=== PATIENT | male | born 1935 | race Caucasian/White ===

== ENCOUNTER 2016-05-03 02:22 | Observation (INO) | payer MEDICARE ==
[2016-05-03] VITALS (11 sets, daily range): BP systolic 95–158; BP diastolic 64–94; PULSE 65–99; RESP 14–18; O2SAT 96–100
[~2016-05-03] VITALS: Ht 167.6 cm; Wt 58.6 kg
[~2016-05-03 02:22] MED LIST: METO25TA6 PO; OMEP20TA86 PO; PHEN30CA PO; PHN100C PO
[2016-05-03] MEDS ORDERED: 0.9% Sodium Chloride 1,000 ML IV ONE (03:00)
[2016-05-03] MEDS ORDERED: Ondansetron 2 mg/mL 2 mL Inj IVPUSH ONE (03:00)
[2016-05-03 03:07] LABS: BASOPHILS % (AUTO) 0.1 % (0-3); EOSINOPHILS % (AUTO) 0.4 % (0-5); MONOCYTES % (AUTO) 8.1 % (4-12); Mean Corpuscular Hemoglobin 27.8 pg (27.0-35.0); Mean Corpuscular Volume 86.9 fL (81-100); NEUTROPHILS % (AUTO) 77.4 % (40-74); Platelet Count 199 bil/L (150-400)
[2016-05-03 03:33] LABS: TROPONIN T 0.01 ug/L (0.0-0.011)
[2016-05-03] MEDS: fentaNYL-PF 50 mCg/mL 2 mL Inj IVPUSH PRN ×3 (03:57→05:01)
--- NOTE | 2016-05-03 04:14 | ED.REPORT ---
HPI-General Illness Date of Service May 03, 2016 ED Provider: Donavan Mac MD Mr. Lukas Del Castillo is an 80-year-old pleasant gentleman with a past medical history significant for seizures, TIA, esophageal cancer with 5 years cancer free who presents himself by way of car to [facility] emergency Department for pain on the right side of his neck since 11:30 PM the night before. Reports the pain is very severe and is worse with movement. He took 500 mg Tylenol and claims it was not helpful. Only other symptom is nausea which began on when he entered the room. He denies all other symptoms such as head pain, dizziness, chest pain, shortness of breath, fever, chills, falls, syncope , abdominal pain, constipation, diarrhea. During his interview he fell asleep multiple times and appeared quite pale, diaphoretic and difficult to arouse. Nursing Notes Stated Complaint: NECK PAIN Chief Complaint: General Complaint Nursing Notes Reviewed: Yes Allergies: Coded Allergies: Procaine HCl (Verified Allergy, Intermediate, racing heart, 05/03/16) acyclovir (Verified Allergy, Unknown, 05/03/16) aspirin (Verified Allergy, Unknown, 05/03/16) valacyclovir (Verified Allergy, Unknown, 05/03/16) Uncoded Allergies: ADKINS PEPPERS (Allergy, Unknown, 09/05/14) Scheduled Metoprolol Tartrate (Metoprolol Tartrate) 25 Mg Tablet 12.5 MG PO BID Omeprazole (Omeprazole) 20 Mg Tablet.dr 20 MG PO DAILY Phenytoin Sodium ER (Dilantin) 100 Mg Capsule 100 MG PO BID Phenytoin Sodium ER (Dilantin) 30 Mg Capsule 60 MG PO BID General Time Seen by MD: 02:28 Chief Complaint Other (neck pain) Hx Obtained From: Patient Sudden in Onset?: Yes Location: : Neck Quality: Painful Radiation: : Does not radiate Severity: Current: Moderate Severity: Maximum: Moderate Associated with: Reports: Nausea Additional Notes: Neck Pain Pertinent Negative: Pt denies other symptoms Recent Healthcare: No recent hospitalization, Recent doctor visit Past Medical History Past Medical History Notes: Oncologist Dr. Ferrell Esophageal FB - removed endoscopy 05/21 Esophageal FB - passed w/glucagon and coke 09/2014 Past Medical History T3 N1 distal esophageal adenocarcinoma Hypertension Atrial fibrillation CVA Diverticulitis GERD Reports: Cancer, Stroke Past Surgical History Endoscopy Cholecystectomy Port surgeries Knee surgeries Esophageal surgery - partial esophagectomy in 2011 and Luc[facility] Bartholomew Family History Noncontributory Smoking History Never Smoker Social History Alcohol Use: Denies alcohol use Drug Use: Denies drug use Other Social History: , Local resident Ambulatory Status Independent Review of Systems A comprehensive review of systems was conducted with the patient and found to be negative except as above in the History of Present Illness. Complete sys rev & neg: except as marked. Physical Exam General: Elderly individual appearing frail, pale with waxing and waning lethargy and malaise, appropriately interactive when awake HEENT: Normocephalic, atraumatic. External ears without defect. Pupils equal, round, and reactive to light and accommodation. Anicteric sclerae, moist conjunctivae, and no lid lag. Oropharynx free of erythema and cobble stoning with moist mucosa. Neck: Range of motion severely restricted due to muscular pain on the right side of patient's neck. No jugular venous distension. No bruits. No lymphadenopathy or thyromegaly. Carotid pulses faint Cardiovascular: Regular rate and rhythm with no murmurs, rubs, or gallops appreciated Pulmonary: Clear to auscultation bilaterally with no crackles, wheezes, or rhonchi. Normal respiratory effort with no use of accessory muscles. Abdomen: Bowel tones present. Soft, nontender, nondistended. No hepatosplenomegaly or masses appreciated. Extremities: No clubbing, cyanosis, edema, or lymphadenopathy appreciated, pulses very faint distally. Skin: Pale and diaphoretic, turgor, and texture; no rash, ulcers, or subcutaneous nodules appreciated. Neurological: Cranial nerves grossly intact. Normal muscle strength, tone, and bulk. Reflexes, coordination, and sensory function within normal limits. No known gait impairment. Psychiatric: Normal mood and affect. Waxes and wanes for alertness, oriented to person, place, and time when awake. Vital Signs Vital Signs Date Time Temp Pulse Resp B/P Pulse Ox O2 Delivery O2 Flow Rate FiO2 05/03/16 03:56 71 16 123/77 100 Room Air 05/03/16 03:13 70 14 95/66 100 Room Air 05/03/16 02:28 37.1 77 16 150/94 98 Room Air Initial VS: Reviewed Interpretation & Diagnostics ANGIOGRAPHY CT (NECK) Read by [facility] IMPRESSION: No carotid or vertebral artery dissection or occlusion within the neck 50% focal stenosis of the proximal right internal carotid artery with normal caliber distally Degenerative changes of the spine Status post gastric pullup surgery Lab Results Interpretation Result Diagram: 05/03/16 0250 05/03/16 0250 Test 05/03/16 02:50 White Blood Count 13.5th/mm3 (3.8-10.1) Red Blood Count 4.21mil/mm3 (4.40-5.80) Hemoglobin 11.7g/dL (13.8-17.2) Hematocrit 36.6% (41.0-50.0) Mean Corpuscular Volume 86.9fL (81-100) Mean Corpuscular Hemoglobin 27.8pg (27.0-35.0) Mean Corpuscular Hemoglobin Concent 32.0% (32.0-37.0) Red Cell Distribution Width 14.4% (12.3-15.4) Platelet Count 199bil/L (150-400) Neutrophils (%) (Auto) 77.4% (40-74) Lymphocytes (%) (Auto) 13.7% (14-46) Monocytes (%) (Auto) 8.1% (4-12) Eosinophils (%) (Auto) 0.4% (0-5) Basophils (%) (Auto) 0.1% (0-3) Prothrombin Time 10.2sec (8.1-12.5) Prothromb Time International Ratio 0.95ratio Activated Partial Thromboplast Time 23.5sec (22.8-33.0) D-Dimer 1.7mg/L (<0.50) Sodium Level 136mEq/L (134-144) Potassium Level 3.8mEq/L (3.5-5.2) Chloride Level 101mEq/L (97-108) Carbon Dioxide Level 23mmol/L (18-29) Blood Urea Nitrogen 15mg/dL (8-27) Creatinine 1.20mg/dL (0.76-1.27) Estimat Glomerular Filtration Rate 62mL/min (>59) Glucose Level 177mg/dL (60-99) Lactic Acid Level 1.8mmol/L (0.4-2.0) Calcium Level 8.6mg/dL (8.5-10.1) Magnesium Level 2.0mg/dL (1.6-2.6) Total Bilirubin 0.3mg/dL (0.0-1.2) Aspartate Amino Transf (AST/SGOT) 18U/L (0-50) Alanine Aminotransferase (ALT/SGPT) 17U/L (0-44) Alkaline Phosphatase 142U/L (25-160) Troponin T 0.010ug/L (0.0-0.011) Total Protein 7.0g/dL (6.4-8.4) Albumin 3.8g/dL (3.4-5.0) ECG Interpretation ECG Interpretation: Sinus Rhythm Rate 71 Low voltage, extremity leads Time: 02:55 Interpreted by: ED physician Normal ECG Interpretation: No change from prior ECGs (05/15/14) X-Ray Chest Interpretation Chest Xray Interpretation: IMPRESSION: No acute abnormalities Interpretation / Wet Read by: Wet read ED physician CT Chest Interpretation IMPRESSION: no evidence of aortic aneurysm or dissection no evidence of pulmonary embolus S/p esophagectomy and gastric pullup surgery minimal dependent area of atelectasis No acute intra-abdominal abnormality Study type: CT pulm angiogram Interpretation / Wet Read by: Wet read ED physician Re-Eval/Medical Decision Med Decision/Clinical Course Mr. Lukas Del Castillo is a 80-year-old male with past medical history significant for seizures, TIA, esophageal cancer now 5 years cancer free who drove himself to the emergency department for neck pain and difficulty sleeping and with complaints that he felt like he was going to pass out. In the emergency department he felt quite tired and upon examination appeared pale, diaphoretic and wax and wane between alertness and lethargy. His blood pressure here in the ED was initially high at 150/94 when lying down was 95/66. He received 1 L normal saline and blood work, CBC, CMP, d-dimer, troponins. His EKG and chest x-ray were normal. Differential diagnosis includes torticollis, vasovagal, age-related lethargy, dehydration, aortic dissection, PE, carotid dissection. Troponins are negative, CMP noncontributory, white count elevated at 13.5 with a slight left shift, which is up from 15 days prior to 6.8 and patient tends to run between 3 and 8, hemoglobin and hematocrit slightly anemic with hemoglobin 11.7, d-dimer elevated at 1.7, CT angiogram Neck chest abdomen was only positive for 50% occlusion of the right carotid node dissection no pulmonary embolism. Urine dip and culture pending. In the ED the patient received Sublimaze, Versed for neck pain and muscle spasms as well as Zofran and 1 L NS. Patient was hypotensive, diaphoretic and very drowsy it would be prudent to observe patient today with remote telemetry. 80-year-old with a remote history of esophageal cancer, now reckoned to be disease free five years post resection, presents with a spasmodic right-sided posterior neck pain. There was no trauma or other inciting event. While being interviewed initially, he became quite pale and diaphoretic, with stated severe pain and nausea. Blood pressure was marginal but responded immediately to supine posture and some fluid. He became more responsive with supine posture and has improved back to baseline normotensive status. His pain has been controlled with very small doses of fentanyl and a dose of Versed. He is admitted now to the medicine service observation status after a syncopal episode. Cardiogram is nonacute. Troponin is negative. No other indication of significant pathology. Concern with his neck pain for dissection prompted a d-dimer, which was elevated. A scan of his neck chest and abdomen looking for aneurysm pulmonary embolus or dissection of the cervical vessels is negative. He is admitted now to the medicine service and transported in stable condition. Time of Eval: 02:45 Re-Evaluation/Progress Note: Patient is rechecked. He is unresponsive for a short period. Patient is arousable but weak. Minimal radial and carotid pulses. EKG is obtained. Time of Eval: 02:49 Re-Evaluation/Progress Note: Patient is rechecked. He is currently complaining of neck pain and nausea. Time of Eval: 02:57 Re-Evaluation/Progress Note: Patient is rechecked. BP is 92/50. Time of Eval: 03:13 Patient Status: Condition improved Re-Evaluation/Progress Note: Patient is rechecked. He is sleeping comfortably. Time of Eval: 05:55 Patient Status: Condition improved Re-Evaluation/Progress Note: Patient is rechecked. He is informed of his lab results, X-ray results, CT results and diagnosis. All of the patient's questions are addressed. He understands and agrees with the plan to admit. Consultation : Referral / Consult Name: Jennifer Archer DO Consulted With: Hospitalist Call Returned at: 06:00 Nub Card Tender: Will see patient, Agrees with eval, Agrees with plan, Accepts admit Counseled Regarding: Diagnosis, Lab results, Need for admission Discharge & Departure Primary Impression: Vasovagal syncope Additional Impressions: History of esophageal cancer Spasmodic torticollis Disposition: ADMITTED TO HOSPITAL Discharge Condition All VS Reviewed: Yes Referrals: Denton Dorado MD (PCP) Crit Care Except Billable Proc Time Spent: 30-74 minutes (30 minutes ) Services Performed: Patient management by me, Time spent at bedside, Reviewing test results, Reviewing imaging, Discussing patient care, Documentation in record Scribe Attestation Portions of this note were transcribed by Favian Stack. I, Dr. Mac personally performed the history, physical exam and medical decision-making; I reviewed and confirmed the accuracy of the information in the transcribed note. Signed by: Amena Puckett, 05/03/16 0600. Attending Statement As attending of record for this patient, I conducted an independent history and physical examination, and concur with the resident documentation as detailed above, and as amended. copies to: Denton Dorado MD, COREY P DO May 03, 2016 04:14 FAVIAN STACK May 03, 2016 04:22 Donavan Mac MD May 03, 2016 06:49
[2016-05-03 04:35] LABS: INR 0.95 ratio
[2016-05-03] MEDS ORDERED: Ondansetron 2 mg/mL 2 mL Inj IVPUSH PRN ×2 (06:45→10:20)
[2016-05-03] MEDS ORDERED: Alum-Mag Hydrox-Simeth 30 mL Suspension PO PRN ×2 (06:45→10:20)
[2016-05-03] MEDS: Lactated Ringer's 1,000 ML IV SCH ×2 (07:52→18:35)
--- NOTE | 2016-05-03 07:59 | DRSVH ---
PROCEDURE: X-RAY CHEST ONE VIEW, PORTABLE ([id number]) INDICATIONS: NECK / CHEST PAIN TECHNIQUE: One view of the chest was acquired. COMPARISON: [facility], CR, CHEST 2VW, 08/25/2012, 17:19. [facility], CT, CH EST/ABD/PELVIS W/CON (PNL), 04/18/2014, 10:19. [facility], CT, CT ANGIO CHEST ABD, 017, 4:54. [facility], CR, CHEST 1VW (PORTABLE), 10/04/2011, 9:16. FINDINGS: Surgical changes and devices: Surgical clips in mediastinum. Lungs and pleura: No pleural effusions or pneumothorax. Lungs are clear. Mediastinum: Mediastinal contours appear normal. Heart size is normal. Intrathoracic stomach consi stent with gastric pull-through. Bones and chest wall: No suspicious bony lesions. Overlying soft tissues appear unremarkable. [place] re degenerative joint disease noted in right shoulder. IMPRESSION: No acute cardiopulmonary disease. Dictated by: Enzo Thompson M.D. on 05/03/2016 at 7:56 Approved by: Enzo Thompson M.D. on 05/03/2016 at 7:59
--- NOTE | 2016-05-03 10:06 | NUR ---
Admit Per NOC RN report, pt arrived to unit at ~0620; pt tucked into bed and oriented to room by LADLE OPERATOR but no assessment documentation completed prior to shift change. Pt A&Ox3, ARCE, VSS, C/o neck pain - pt offered PO Tylenol and pt accepting, IV SL to Right AC - patent and IV infusing, Tele placed - SR per chief telephone operator documentation. Admission assessment and documentation completed and pt comfortable at this time. Care continues.
[2016-05-03] MEDS ORDERED: Polyethylene Glycol (PEG) 17 Gm Powder PO PRN (10:20)
--- NOTE | 2016-05-03 11:46 | DRSVH ---
PROCEDURE: CT ANGIOGRAPHY OF THE NECK WITH AND WITHOUT CONTRAST ([id number]) INDICATIONS: syncope, neck pain TECHNIQUE: After the administration of intravenous contrast, 1.5 mm axial sections acquired from the aortic arch to the [place] of [place]. Coronal 3-D maximum intensity projection (MIP) and/or volume rendering ref ormats were then performed. For radiation dose reduction, the following was used: automated exposur e control. COMPARISON: [facility], MR, STROKE PROTOCOL ([facility]), 03/23/2011, 10:26. [facility] pital, CT, CHEST/ABD/PELVIS W/CON ([facility]), 04/18/2014, 10:19. [facility], CT, CT ANGIO CHES T ABD, 05/03/2016, 4:54. FINDINGS: Image quality: Excellent. Carotid system: The great vessels demonstrate a conventional anatomy as they arise from the aortic a rch. The origins of the common carotid arteries appear patent. The common carotid arteries demonstr ate normal calibers and courses. The bifurcation regions appear normal bilaterally. There is ~50% f ocal stenosis in the proximal right internal carotid artery. The left internal carotid artery demonst rates normal caliber and course. Posterior circulation: The origins of the vertebral arteries appear patent. The more superior porti ons of the vertebral arteries demonstrate normal course and caliber. They join to form a normal appe aring basilar artery. Soft tissues: Visualized neck soft tissues demonstrate no suspicious abnormalities. Thyroid gland i s normal. There are postsurgical changes with a esophagectomy and gastric pull-through. Bones: Moderate to severe degenerative disc disease in cervical spine. No suspicious bony lesions. Visualized cervical spine appears normally aligned. IMPRESSION: 1. Patent carotid arteries and vertebral arteries bilaterally. No evidence for arterial dissections. 2. ~50% focal stenosis in the proximal right internal carotid artery. 3. No stenosis in posterior circulations. 4. Absence of contrast enhancement of the left jugular vein, suspicious for occlusion. Enlargement of the contralateral right jugular vein and collateral veins in the left neck suggest that the process may be chronic. Recommend venous Doppler ultrasound for further evaluation. 5. Esophagectomy and gastric pull-through. 6. Severe degenerative disc disease in cervical spine. Please note Impression #4 was not mentioned in the preliminary report. The result was discussed with Dr. Coffman on 05/04/2015 at 1042 hours. The estimate of stenosis included in the report of the imaging study was calculated using the NASCET method Dictated by: Enzo Thompson M.D. on 05/03/2016 at 11:41 Transcribed by: ALYCIA on 05/03/2016 at 11:46 Approved by: Enzo Thompson M.D. on 05/04/2016 at 10:42
--- NOTE | 2016-05-03 12:03 | DRSVH ---
PROCEDURE: CT ANG CHEST/ABD W/WO CONTRAST ([id number]) INDICATIONS: syncope, neck pain TECHNIQUE: Precontrast 5 mm thick sections acquired from the lung apices to the iliac crests. After the adminis tration of intravenous contrast, 3 mm thick sections again acquired from the lung apices to the iliac crests. 3-dimensional maximum intensity projection (MIP) oblique sagittal and coronal reformats wer e then acquired, and/or 3-dimensional volume rendering reformats. For radiation dose reduction, the following was used: automated exposure control. COMPARISON: [facility], CT, CHEST/ABD/PELVIS W/CON (PNL), 04/18/2014, 10:19. FINDINGS: Image quality: Excellent. AORTA: The aorta is patent with normal enhancement. The aortic root measures 3.5 x 4.2 cm. The ascen ding aorta measures 3.3 cm in diameter. The aortic arch measures 3.0 cm. The descending solid aorta m easures 3 cm in maximum diameter. Mild atherosclerosis is present. No aneurysms or dissection. The gr eat vessels are of dimensional configuration. The abdominal aorta measures up to 2.2 cm in diameter. The celiac trunk, superior mesenteric artery and inferior mesenteric artery are patent. There is a si ngle right renal artery and 2 left renal arteries. Renal arteries are patent. Bifurcations are normal . Common iliac arteries are normal in caliber. CHEST: Lungs and pleura: No acute airspace opacities. No pleural effusions or pneumothorax. Central and p eripheral airways are patent and normal in caliber. Mediastinum: Heart size is normal. No pericardial effusion. No mediastinal or hilar adenopathy by size criteria. Central pulmonary arteries are normal in size. There is esophagectomy and gastric pul l-through There is absence of contrast enhancement of the left jugular vein suspicious for occlusion . Bones and chest wall: No axillary adenopathy by size criteria. Thyroid gland normal. No suspicious bony lesions. No vertebral body compression fractures. ABDOMEN: Solid organs: Liver and spleen are normal in size. Gallbladder is surgically absent. Biliary syste m is non dilated. Pancreas enhances normally. No adrenal nodules. Both kidneys are normal in size and enhancement, without hydronephrosis. Small nonoperative renal calculi are noted bilaterally. Peritoneum and bowel: No free fluid or air. Bowel loops are normal in caliber and wall thickness. Nodes and vessels: No retroperitoneal or mesenteric adenopathy by size criteria. Inferior vena cava is normal in morphology. Bones: No suspicious bony lesions. No vertebral body compression fractures. Miscellaneous: No ventral hernias. A cystic structure is partially visualized at midline and lower abdomen, presumably the distended urinary bladder. IMPRESSION: 1. No aortic aneurysm or dissection. The descending thoracic aorta is slightly ectatic measuring up t o 3 cm. Follow up ultrasound is suggest in 3 years. 2. Esophagectomy and gastric pull-through. 3. Suspect Occlusion of the left internal jugular vein. Please see neck CT angiogram report for detai l. 4. Bilateral nonaggressive renal calculi. No significant discrepancy with the senior civil engineer radiology preliminary report. Dictated by: Enzo Thompson M.D. on 05/03/2016 at 11:47 Transcribed by: ALYCIA on 05/03/2016 at 12:03 Approved by: Enzo Thompson M.D. on 05/04/2016 at 10:05
--- NOTE | 2016-05-03 13:03 | NUR ---
Evaluation completed. Please go to "Notes" then click on "Assessments and Notes" (bottom left corner of screen). Then select appropriate discipline tab on top of screen.
--- NOTE | 2016-05-03 13:17 | NUR ---
Social Work: Initial Assessment Data & Assessment: EMR Reviewed. See Initial Assessment. SW met with patient at bedside to complete initial assessment, discuss discharge planning, and SW role explained. Patient alert and oriented x 3. Patient YVETTE is his daughter Joellen Gracia [phone]. Patient reports that his is his DPOA, but she has dementia. Patient states that his daughter Joellen [phone] is the first alternate on his DPOA. SW requested a copy. Patient confirmed that his PCP is Dr Denton Dorado. Patient's insurance is [employer] Medicare. Patient does not have LTC or VA benefits. Patient lives home alone in a single level home with one step to enter. Patient does not have any DME, SNF history or HH history. Patient's lives in a Dementia facility. SW spoke with patient daughter, Joellen [phone], and she confirmed what the patient reported. Patient daughter stated that the patient drove his self to the hospital, but someone will pick him up when discharged. SW will continue to follow. Plan: It is like that the patient will discharge home with no needs from SW. Patient will transport home via POV. SW will continue to follow. Karlene Butt LMSW, [place] Addendum: 05/03/16 at 1327 by KARLENE BUTT Amended: Links added.
--- NOTE | 2016-05-03 14:46 | DRSVH ---
PROCEDURE: US BILATERAL DUPLEX DOPPLER IMAGING OF THE CAROTIDS ([id number]) INDICATIONS: Syncope TECHNIQUE: Color and pulse Doppler interrogation was performed of both carotid systems, with image documentation and velocity measurements. COMPARISON: [facility], US, CAROTID DUPLEX DOPPLER BILAT, 03/22/2011, 19:20. FINDINGS: All stenosis calculations are based on NASCET criteria. Right side: Brachial blood pressure: 150/98 mm Hg. Common Carotid Artery(Distal) PSV: 78.70 cm/s Internal Carotid Artery PSV- Proximal: 56.90 cm/s Mid-lon.60 cm/s Distal: 74.50 cm/s EDV - Proximal: 17.50 cm/s Mid-lon.20 cm/s Distal: 25.70 cm/s External Carotid Artery(Proximal) PSV: 92 cm/s ICA/CCA PSV ratio: 0.95 Winter scale imaging description: Mild plaquing Percent internal carotid artery stenosis: Less than 50% and improved. Vertebral artery: Flow direction is antegrade. Left side: Brachial blood pressure: 158/82 mm Hg. Common Carotid Artery(Distal) PSV: 97.20 cm/s, 87.40 cm/s Internal Carotid Artery PSV - Proximal: 50.30 cm/s Mid-lon.10 cm/s Distal: 68.90 cm/s EDV - Proximal: 16.70 cm/s Mid-lon.50 cm/s Distal: 21.50 cm/s External Carotid Artery(Proximal) PSV: 151.80 cm/s ICA/CCA PSV ratio: 0.71 Winter scale imaging description: Mild plaquing Percent internal carotid artery stenosis: This is and unchanged. Vertebral artery: Flow direction is antegrade. IMPRESSION: 1. Less than 50% internal carotid stenosis bilaterally. 2. Antegrade flow in vertebral arteries bilaterally. Dictated by: Enzo Thompson M.D. on 05/03/2016 at 14:42 Approved by: Enzo Thompson M.D. on 05/03/2016 at 14:45
[2016-05-03 16:48] LABS: APPEARANCE,URINE CLEAR (CLEAR,HAZY); COLOR,URINE YELLOW (YELLOW); OCCULT BLOOD,URINE NEGATIVE (NEGATIVE); UROBILINOGEN,URINE NORMAL (NORMAL)
[2016-05-03] MEDS ORDERED: Ketorolac 15 mg/mL Inj IVPUSH PRN (18:10)
[2016-05-03] MEDS ORDERED: PHENYTOIN 30 MG PO SCH ×2 (20:30)
[2016-05-03] MEDS ORDERED: Phenytoin 100 mg ER Capsule PO SCH (20:30)
[2016-05-03] MEDS: Phenytoin 100 mg ER Capsule PO SCH ×2 (21:00→21:15)
--- NOTE | 2016-05-03 21:42 | PCM.HPMED ---
Subjective Date of Service May 03, 2016 Primary Provider: Admitting Physician: Jennifer Archer DO Primary Care Physician: Denton Dorado MD Attending Physician: Jennifer Archer DO Admit Status: From the Emergency Department, Admit to Red Team Chief Complaint: Excruciating neck pain History of Present Illness: The patient is a very pleasant 80-year-old white male with a past medical history for seizures, TIA, and esophageal cancer who was treated with esophagectomy in 2010 at [facility]. Patient began having excruciating neck pain at 11:30 PM last evening and reported that the pain became worse with movement. Patient took 500 mg of Tylenol prior to coming to the hospital and this was not helpful. He arrived by private vehicle to [facility] emergency room. After arrival to the emergency room he developed nausea which began when he entered the emergency room. He denied all other symptoms at that time such as headache, dizziness, chest pain, shortness breath , fever, chills, falls, syncope, abdominal pain, constipation, diarrhea. However, during his interview with the emergency room doctor(Dr. Justin Abarca) the patient felt like he was going to pass out. The patient appeared pale, diaphoretic and would wax and wane between alertness and lethargy. The patient had troponins drawn which were negative a CMP which was noncontributory and a white blood cell count was found to be elevated at 13.5 with a slight left shift. Which was up from 6.8 15 days prior. EKG was performed which showed sinus rhythm with a rate of 71 low voltage in the extremity leads and no change from prior EKGs. Chest x-ray showed no acute abnormalities. And due to an elevated d-dimer a CT scan of the chest was performed which showed no evidence of aortic aneurysm or dissection, no evidence of pulmonary embolus, status post esophagectomy and gastric pull up surgery, minimal dependent areas of atelectasis and no acute intra-abdominal abnormality patient was rechecked at 2: 45 AM and he was found be unresponsive for a short period he was arousable but weak. Minimal radial and carotid pulses patient was rechecked at 02 57 and blood pressure was only 92/50 due to the above findings have concern for a syncopal episode or at least presyncopal episode with severe neck pain and leukocytosis patient was brought in under observation to the hospital service.. Review of Systems: General: Patient is in no apparent distress at present time. He has no fever no chills no sweats. There is no cough. HEENT: Patient has no headache, patient has no diplopia, patient has no changes in vision. He does however wear glasses. Patient has no problems with his ears nose or throat. Patient has known dental problems. Patient has no pharyngitis or history of thrush. Neck: Patient has no previous history of stiffness in the neck, or arthritis of the neck. However, today he had extreme pain in his neck. His neck pain is relieved by pressing on the area of the inion, or the external occipital protuberance. Patient has no lymphadenopathy. Pulmonary: Patient has no shortness of breath, no cough, no expectoration of sputum. He has no pleurisy. Patient has no chest pain. Patient has no history of asthma or COPD. Cardiovascular: Patient has no chest pain. Patient has no history of heart murmur. Patient has no palpitations. Patient has no history of myocardial infarction. Patient has no history of coronary artery disease. He states that his heart is "a strong as a horse" Gastrointestinal: Patient has no history of hepatitis A, B, or C. Patient has no history of peptic ulcer disease. Patient has no history of gastroesophageal reflux disease. Patient has no history of nausea, vomiting, or diarrhea. Patient has no history of hematemesis, hematochezia, or melena. Patient has no history of colitis. Renal: Patient has no history of kidney disease. No history of kidney stones. Genitourinary: Patient has no history of dysuria, frequency, or incontinence. Patient has no previous history of genitourinary problems. 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 Neurologic: Patient has no history of stroke, no history of seizure, no history of TIA. Psychiatric: Patient has no history of psychiatric problems. The remainder of the complete review of systems was reviewed with patient and is as mentioned above otherwise negative. Allergies Coded Allergies: Procaine HCl (Verified Allergy, Intermediate, racing heart, 05/03/16) acyclovir (Verified Allergy, Unknown, 05/03/16) aspirin (Verified Allergy, Unknown, 05/03/16) valacyclovir (Verified Allergy, Unknown, 05/03/16) Uncoded Allergies: ADKINS PEPPERS (Allergy, Unknown, 09/05/14) Home Medications Scheduled medications: Metoprolol Tartrate (Metoprolol Tartrate) 25 Mg Tablet 12.5 MG PO BID Omeprazole (Omeprazole) 20 Mg Tablet. 20 MG PO DAILY Phenytoin Sodium ER (Dilantin) 160 MG PO every morning Phenytoin Sodium ER (Dilantin) 200 MG PO BID PMH T3 N1 distal esophageal adenocarcinoma status post esophago-objective me with gastric pull-through in 2010 at [facility] by Dr. 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 Diverticulitis GERD Seizure history starting at the age of 7. Surgical History Tonsillectomy anion age Wrist and tooth removal 4 Endoscopy Cholecystectomy Port surgeries Bilateral Knee surgeries to remove torn cartilage Esophageal surgery - partial esophagectomy with gastric pull through surgery in 2010 at [facility] by Dr. Peoples. Family History Patient's father in his 60s of a leg aneurysm Patient's mother of an overdose of aspirin at the age of 82 Patient has 1 sister who smokes 4 packs a day and is 82 Patient had one brother who at the age of 14 from influenza. Social History Hx Alcohol Use: Yes (Patient quit drinking in 1960. Prior to that he "drank like a fish".) Hx Substance Use: No Hx Tobacco Use: No Smoking Status: Never Smoker Living Arrangement: Alone Exam Vital Signs Vital Sign - Last Date Time Temp Pulse Resp B/P Pulse Ox O2 Delivery O2 Flow Rate FiO2 05/03/16 14:50 36.6 83 18 118/65 99 Room Air Intake and Output 05/02/16 05/02/16 05/03/16 Cumulative From/Thru 15:00 23:00 07:00 05/03/16 02:28 - 05/03/16 03:12 Intake Total 1000 ml 1000 ml Balance 1000 ml 1000 ml IV Total 1000 ml 1000 ml Exam General: The patient is in no apparent distress sitting at the side of his bed. However he is reluctant to turn his head. HEENT: Head is atraumatic normocephalic. Eyes: Pupils are equally round and reactive to light and accommodation. Extraocular muscles are intact. Sclera are white anicteric. Subconjunctival mucosa is pink. Ears and nose are unremarkable. Oropharynx: There is no mucosal lesions, there is no thrush, there is no pharyngitis. Neck: Is supple, there are no nodes, or masses, or tenderness. Chest: Is clear to auscultation and percussion. There are no rales, rhonchi, wheezes or rubs. Heart: Rate is controlled, rhythm is irregular. There is no murmur, rub or gallop. Abdomen: Good bowel sounds are present. Abdomen is soft, nontender, no organomegaly or masses were appreciated. Extremities: Are symmetrical and well perfused. There is no edema, there is no cellulitis, no rash. Neurologic: There are no focal neurological deficits. Cranial nerves II through XII are intact. There are no sensory or motor deficits. Psychiatric: Patients mood is calm and shows no sign of agitation. Genital: Deferred Rectal: Deferred Lab and Diagnostics Result Diagram: 05/03/1624905/03/16249 X-Rays, CTs and MRIs PROCEDURE: US BILATERAL DUPLEX DOPPLER IMAGING OF THE CAROTIDS ([id number]) INDICATIONS: Syncope TECHNIQUE: Color and pulse Doppler interrogation was performed of both carotid systems, with image documentation and velocity measurements. COMPARISON: [facility], , CAROTID DUPLEX DOPPLER BILAT, 2010, 19:20. FINDINGS: All stenosis calculations are based on NASCET criteria. Right side: Brachial blood pressure: 150/98 mm Hg. Common Carotid Artery(Distal) PSV: 78.70 cm/s Internal Carotid Artery PSV- Proximal: 56.90 cm/s Mid-lon.60 cm/s Distal: 74.50 cm/s EDV - Proximal: 17.50 cm/s Mid-lon.20 cm/s Distal: 25.70 cm/s External Carotid Artery(Proximal) PSV: 92 cm/s ICA/CCA PSV ratio: 0.95 Winter scale imaging description: Mild plaquing Percent internal carotid artery stenosis: Less than 50% and improved. Vertebral artery: Flow direction is antegrade. Left side: Brachial blood pressure: 158/82 mm Hg. Common Carotid Artery(Distal) PSV: 97.20 cm/s, 87.40 cm/s Internal Carotid Artery PSV - Proximal: 50.30 cm/s Mid-lon.10 cm/s Distal: 68.90 cm/s EDV - Proximal: 16.70 cm/s Mid-lon.50 cm/s Distal: 21.50 cm/s External Carotid Artery(Proximal) PSV: 151.80 cm/s ICA/CCA PSV ratio: 0.71 Winter scale imaging description: Mild plaquing Percent internal carotid artery stenosis: This is and unchanged. Vertebral artery: Flow direction is antegrade. IMPRESSION: 1. Less than 50% internal carotid stenosis bilaterally. 2. Antegrade flow in vertebral arteries bilaterally. Dictated by: Enzo Thompson M.D. on 05/03/2016 at 14:42 PROCEDURE: CT ANGIOGRAPHY OF THE NECK WITH AND WITHOUT CONTRAST ([id number]) INDICATIONS: syncope, neck pain TECHNIQUE: After the administration of intravenous contrast, 1.5 mm axial sections acquired from the aortic arch to the [place]. Coronal 3-D maximum intensity projection (MIP) and/or volume rendering reformats were then performed. For radiation dose reduction, the following was used: automated exposure control. COMPARISON: None. FINDINGS: Image quality: Excellent. Carotid system: The great vessels demonstrate a conventional anatomy as they arise from the aortic arch. The origins of the common carotid arteries appear patent. The common carotid arteries demonstrate normal calibers and courses. The bifurcation regions appear normal bilaterally. The internal carotid arteries demonstrate normal caliber and course. Posterior circulation: The origins of the vertebral arteries appear patent. The more superior portions of the vertebral arteries demonstrate normal course and caliber. They join to form a normal appearing basilar artery. Soft tissues: Visualized neck soft tissues demonstrate no suspicious abnormalities. Thyroid gland is normal. There are postsurgical changes with a esophagectomy and gastric pull-through. Bones: Moderate to severe degenerative disc disease in cervical spine. No suspicious bony lesions. Visualized cervical spine appears normally aligned. IMPRESSION: 1. Patent carotid arteries and vertebral arteries bilaterally. No evidence for a tear dissection. 2. No high-grade stenosis in anterior or posterior circulations. 3. Esophagectomy and gastric pull-through. 4. Severe degenerative disc disease in cervical spine. The estimate of stenosis included in the report of the imaging study was calculated using the NASCET method PROCEDURE: X-RAY CHEST ONE VIEW, PORTABLE ([id number]) INDICATIONS: NECK / CHEST PAIN TECHNIQUE: One view of the chest was acquired. COMPARISON: [facility], CR, CHEST 2VW, 08/25/2012, 17:19. [facility], CT, CHEST/ABD/PELVIS W/CON (PNL), 04/18/2014, 10:19. [facility], CT, CT ANGIO CHEST ABD, 05/03/2016, 4:54. [facility], CR, CHEST 1VW (PORTABLE), 10/04/2011, 9:16. FINDINGS: Surgical changes and devices: Surgical clips in mediastinum. Lungs and pleura: No pleural effusions or pneumothorax. Lungs are clear. Mediastinum: Mediastinal contours appear normal. Heart size is normal. Intrathoracic stomach consistent with gastric pull-through. Bones and chest wall: No suspicious bony lesions. Overlying soft tissues appear unremarkable. Severe degenerative joint disease noted in right shoulder. IMPRESSION: No acute cardiopulmonary disease. Dictated by: Enzo Thompson M.D. on 05/03/2016 at 7:56 Approved by: Enzo Thompson M.D. on 05/03/2016 at 7:59 Assessment & Plan The patient is a very pleasant 80-year-old white male with a past medical history for seizures, TIA, and esophageal cancer who was treated with esophagectomy in 2010 at [facility]. Patient began having excruciating neck pain at 11:30 PM last evening and reported that the pain became worse with movement. Patient took 500 mg of Tylenol prior to coming to the hospital and this was not helpful. He arrived by private vehicle to [facility] emergency room. After arrival to the emergency room he developed nausea which began when he entered the emergency room. He denied all other symptoms at that time such as headache, dizziness, chest pain, shortness breath , fever, chills, falls, syncope, abdominal pain, constipation, diarrhea. However, during his interview with the emergency room doctor(Dr. Justin Abarca) the patient felt like he was going to pass out. The patient appeared pale, diaphoretic and would wax and wane between alertness and lethargy. The patient had troponins drawn which were negative a CMP which was noncontributory and a white blood cell count was found to be elevated at 13.5 with a slight left shift. Which was up from 6.8 15 days prior. EKG was performed which showed sinus rhythm with a rate of 71 low voltage in the extremity leads and no change from prior EKGs. Chest x-ray showed no acute abnormalities. And due to an elevated d-dimer a CT scan of the chest was performed which showed no evidence of aortic aneurysm or dissection, no evidence of pulmonary embolus, status post esophagectomy and gastric pull up surgery, minimal dependent areas of atelectasis and no acute intra-abdominal abnormality patient was rechecked at 2: 45 AM and he was found be unresponsive for a short period he was arousable but weak. Minimal radial and carotid pulses patient was rechecked at 02 57 and blood pressure was only 92/50 due to the above findings have concern for a syncopal episode or at least presyncopal episode with severe neck pain and leukocytosis patient was brought in under observation to the hospital service.. Severe neck pain or torticollis -Appears to be due to degenerative disc disease and/or osteoarthritis of the cervical spine. -We will prescribe Toradol 15 mg IV every 6 hours when necessary Syncopal-like episode -Possible vasovagal near syncope or syncope. Could be related to above -Possible exhaustion from lack of sleep due to the excruciating neck pain -Start gentle IV hydration Leukocytosis with left shift -Possible occult infection yet be discovered. -Possible secondary to dehydration and current situation. -Repeat CBC in a.m. after gentle IV hydration Esophageal cancer-T3 N1 distal esophageal adenocarcinoma -Status post esophagectomy with gastric pull through surgery at [facility] [place] [address] Peoples -Patient follows up with Dr. Sauceda on a yearly basis. 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
[2016-05-04] MEDS: Lactated Ringer's 1,000 ML IV SCH (02:42)
--- NOTE | 2016-05-04 05:29 | NUR ---
Sleeping Patient slept quietly through the night, denies CP, SOB, abdominal discomfort. Per technical services manager: Sinus 63.
[2016-05-04 05:53] VITALS: BP 147/76; PULSE 64; RESP 16; O2SAT 97
[2016-05-04 06:14] LABS: BASOPHILS % (AUTO) 0.1 % (0-3); EOSINOPHILS % (AUTO) 0.6 % (0-5); MONOCYTES % (AUTO) 12.7 % (4-12); NEUTROPHILS % (AUTO) 68.1 % (40-74); Platelet Count 185 bil/L (150-400)
[2016-05-04] MEDS ORDERED: Pantoprazole 20 mg ER24 Tablet PO SCH (06:30)
[2016-05-04 06:48] LABS: Magnesium 2.1 mg/dL (1.6-2.6); Phosphorus 2.4 mg/dL (2.5-4.9)
[2016-05-04 07:40] LABS: ERYTHROCYTE SEDIMENTATION RATE 12 mm/hr (0-30)
[2016-05-04 08:01] VITALS: BP 129/78; PULSE 63; RESP 18; O2SAT 98
[2016-05-04] MEDS ORDERED: PHENYTOIN PO SCH ×2 (08:30)
[2016-05-04 09:42] VITALS: PULSE 61
--- NOTE | 2016-05-04 10:48 | NUR ---
Pain Pt AAOx4, denies pain/discomfort this morning. ECHO completed. VSS. Uses call light to make needs known. Probable d/c home today.
[2016-05-04] MEDS ORDERED: Ketorolac 15 mg/mL Inj ONE (11:20)
[2016-05-04] MEDS ORDERED: Ketorolac 15 mg/mL Inj IVPUSH PRN (12:10)
--- NOTE | 2016-05-04 12:10 | NUR ---
Case Management: MICHELLE explained and signed. Original placed in chart. Copy left at bedside. Olga Ponce RN
--- NOTE | 2016-05-04 13:58 | DRSVH ---
PROCEDURE: US UNLISTED SONOGRAM ([id number]) INDICATIONS: Evaluate Jugular thrombosis COMPARISON: None. FINDINGS: No evidence of right or left jugular vein thrombus. IMPRESSION: No evidence of jugular vein thrombus. Dictated by: Denise Cowart M.D. on 05/04/2016 at 13:56 Approved by: Denise Cowart M.D. on 05/04/2016 at 13:56
[2016-05-04 14:53] VITALS: BP 130/86; PULSE 77; RESP 20; O2SAT 98
--- NOTE | 2016-05-04 15:52 | DRSVH ---
[facility] [address] [place] [address] Echocardiogram Report Name: GONZALES GARCIA JStudy Date: Height: 66 in Hospital Exam Location: [facility] Weight: 133 lb Gender: Male BSA: 1.7 m2 : 1935 Age: 80 yrs BP: 147/76 mmHg Reason For Study: SYNCOPE, HYPOTENSION History: Esophageal resection for cancer. Ordering Physician: Performed By: Kely Berrios Referring Physician: Denton Dorado Interpretation Summary The left ventricle is grossly normal size. The left ventricle is hyperdynamic. The ejection fraction is estimated to be 70-75%. The right ventricle is normal in size and function. Patient has history of esophageal resection for cancer. There appears to be still some impingement externally of the left atrial chamber but lesser than seen in 03/2011. No significant valvular pathology seen. Procedure: A two-dimensional transthoracic echocardiogram with color flow and Doppler was performed. The study quality was technically adequate. Comparison is made with the echocardiogram of 03/23/2011. The patient was in normal sinus rhythm during the exam. Left Ventricle: There is normal left ventricular wall thickness. Proximal septal thickening is noted. The left ventricle is grossly normal size. There is no echo evidence for significant left ventricular outflow tract obstruction. There is no thrombus. The ejection fraction is estimated to be 70-75%. The left ventricle is hyperdynamic. There are no focal wall motion abnormalities. Spectral Doppler of the mitral valve is reversed, with an E/A wave ratio < 1.0. Right Ventricle: The right ventricle is normal in size and function. Atria: The left atrium is small. Patient has history of esophageal resection for cancer. There appears to be still some impingement externally of the left atrial chamber but lesser than seen in 03/2011. Right atrial size is normal. The interatrial septum is intact with no evidence for an atrial septal defect. There is no Doppler evidence for an interatrial shunt. Mitral Valve: The mitral valve leaflets are slightly calcified. There is trace mitral regurgitation. Aortic Valve: The aortic valve is normal in structure and function. There is mild aortic valve sclerosis. No aortic regurgitation is present. Tricuspid Valve: The tricuspid valve is normal in structure and function. There is trace tricuspid regurgitation. The right ventricular systolic pressure is estimated at 27 mmHg assuming a right atrial pressure of 3 mm Hg. There has been no significant change since the previous study. Pulmonic Valve: The pulmonic valve is not well seen, but is grossly normal. There is no pulmonic valvular regurgitation. Great Vessels: The aortic root is normal size. The ascending aorta is at the upper limits of normal in size. The IVC is of normal diameter and collapses greater than 50% with a sniff. This suggests a low right atrial pressure of 3 mm Hg. Pericardium/ Pleura There is no pericardial effusion. There is no pleural effusion. MMode/2D Measurements & Calculations LVIDd: 3.7 cm RA long axis LVOT diam LVIDs: 2.6 cm LA A2 area: 15.7 cm FS: 29.5 % LA A4 area: 21.5 cm RA area Ao root diam IVSd: 0.87 cm LA length (vol): 5.4 cm LVPWd: 0.85 cm LA vol: 52.6 ml : 16.2 cm asc Aorta LA vol index RA vol: 53.5 mlDiam: 3.4 cm RA : 31.8 mm2 IVC diam: 0.88 cm LV conley. diameter/BSA LV sys. diameter/BSA RVD1 (basal) TAPSE: 2.9 cm (cm/m^2): 2.2 (cm/m^2): 1.5 Doppler Measurements & Calculations Ao V2 max MV E max darryn MV E/A: 0.81 TR max darryn : 180.8 cm/sec : 68.3 cm/sec Med Peak E' Darryn : 242.4 cm/sec Ao max PG MV A max darryn TR max PG : 13.1 mmHg : 84.7 cm/sec E/E' med: 13.0 : 23.5 mmHg Ao mean PG MV P1/2t: 98.1 msec Lat Peak E' Darryn PA V2 max : 99.9 cm/sec LVOT Max Darryn E/E' lat: 21.8 PA mean PG : 139.1 cm/sec E/e' average: 17.4 Pulm A Revs Dur PA Accel Time LARRY(I,D): 3.2 cm : 0.15 sec sev ratio MV A dur: 0.14 sec MV dec time MV P1/2t max darryn Ao V2 mean LV V1 max PG : 0.34 sec : 108.7 cm/sec MVA(P1/2t): 2.2 cm2 Ao V2 VTI: 32.6 cm LV V1 VTI LARRY(V,D): 2.5 cm2 : 31.2 cm PA V2 mean LARRY indexed to BSA Pulm A Revs Dur - MV A : 66.7 cm/sec (cm^2/m^2): 1.9 Dur: -0.03 msec Reading Physician:ORI
--- NOTE | 2016-05-04 16:15 | PCM.DIMED ---
Discharge Instructions Date of Service May 04, 2016 Dates of Hospitalization May 03, 2016 at 06:15 Discharge Diagnosis Discharge Diagnosis [place] secondary to degenerative disc disease of the cervical spine Diet Heart Healthy Activity No restrictions (May resume usual activities gradually as tolerated) Call your provider Fever or Chills, Shortness of breath, Bleeding, Chest pain, Vomitting, Excessive diarrhea, Weakness (unilateral), Other Patient Instructions Follow-up Provider: Denton Dorado MD Follow-up with PCP in: 1 week Donavan Blair MD May 04, 2016 16:15
--- NOTE | 2016-05-04 16:43 | NUR ---
DISCHARGE Pt given discharge instructions on syncope and dehydration. family in room at time of dc. pt states he understands instructions. no scripts given. pt declined a wheelchair as he has been up doing numerous laps around hallway throughout the day. pt walked out with family to private vehicle @ 1640. of note pt had originally drove himself to ER however at dc his daughter in law was driving him home and son was driving his car.
--- NOTE | 2016-05-12 13:17 | PCM.DC.MED ---
Discharge Summary Date of Service May 04, 2016 Dates of Hospitalization Date of Hospital Admission May 03, 2016 at 06:15 Date of Discharge: May 04, 2016 Providers: Admitting Physician: Jennifer Archer DO Primary Care Physician: Denton Dorado MD Attending Physician: Donavan Blair MD Diagnosis at Time of Discharge Diagnosis at Time of Discharge [place] secondary to degenerative disc disease of the cervical spine Procedures XRay, CTs & MRIs PROCEDURE: US BILATERAL DUPLEX DOPPLER IMAGING OF THE CAROTIDS ([id number]) INDICATIONS: Syncope TECHNIQUE: Color and pulse Doppler interrogation was performed of both carotid systems, with image documentation and velocity measurements. COMPARISON: [facility], US, CAROTID DUPLEX DOPPLER BILAT, 2010, 19:20. FINDINGS: All stenosis calculations are based on NASCET criteria. Right side: Brachial blood pressure: 150/98 mm Hg. Common Carotid Artery(Distal) PSV: 78.70 cm/s Internal Carotid Artery PSV- Proximal: 56.90 cm/s Mid-lon.60 cm/s Distal: 74.50 cm/s EDV - Proximal: 17.50 cm/s Mid-lon.20 cm/s Distal: 25.70 cm/s External Carotid Artery(Proximal) PSV: 92 cm/s ICA/CCA PSV ratio: 0.95 Winter scale imaging description: Mild [place] Percent internal carotid artery stenosis: Less than 50% and improved. Vertebral artery: Flow direction is antegrade. Left side: Brachial blood pressure: 158/82 mm Hg. Common Carotid Artery(Distal) PSV: 97.20 cm/s, 87.40 cm/s Internal Carotid Artery PSV - Proximal: 50.30 cm/s Mid-lon.10 cm/s Distal: 68.90 cm/s EDV - Proximal: 16.70 cm/s Mid-lon.50 cm/s Distal: 21.50 cm/s External Carotid Artery(Proximal) PSV: 151.80 cm/s ICA/CCA PSV ratio: 0.71 Winter scale imaging description: Mild [place] Percent internal carotid artery stenosis: This is and unchanged. Vertebral artery: Flow direction is antegrade. IMPRESSION: 1. Less than 50% internal carotid stenosis bilaterally. 2. Antegrade flow in vertebral arteries bilaterally. Dictated by: Enzo Thompson M.D. on 05/03/2016 at 14:42 PROCEDURE: CT ANGIOGRAPHY OF THE NECK WITH AND WITHOUT CONTRAST ([id number]) INDICATIONS: syncope, neck pain TECHNIQUE: After the administration of intravenous contrast, 1.5 mm axial sections acquired from the aortic arch to the [place]. Coronal 3-D maximum intensity projection (MIP) and/or volume rendering reformats were then performed. For radiation dose reduction, the following was used: automated exposure control. COMPARISON: None. FINDINGS: Image quality: Excellent. Carotid system: The great vessels demonstrate a conventional anatomy as they arise from the aortic arch. The origins of the common carotid arteries appear patent. The common carotid arteries demonstrate normal calibers and courses. The bifurcation regions appear normal bilaterally. The internal carotid arteries demonstrate normal caliber and course. Posterior circulation: The origins of the vertebral arteries appear patent. The more superior portions of the vertebral arteries demonstrate normal course and caliber. They join to form a normal appearing basilar artery. Soft tissues: Visualized neck soft tissues demonstrate no suspicious abnormalities. Thyroid gland is normal. There are postsurgical changes with a esophagectomy and gastric pull-through. Bones: Moderate to severe degenerative disc disease in cervical spine. No suspicious bony lesions. Visualized cervical spine appears normally aligned. IMPRESSION: 1. Patent carotid arteries and vertebral arteries bilaterally. No evidence for a tear dissection. 2. No high-grade stenosis in anterior or posterior circulations. 3. Esophagectomy and gastric pull-through. 4. Severe degenerative disc disease in cervical spine. The estimate of stenosis included in the report of the imaging study was calculated using the NASCET method PROCEDURE: X-RAY CHEST ONE VIEW, PORTABLE ([id number]) INDICATIONS: NECK / CHEST PAIN TECHNIQUE: One view of the chest was acquired. COMPARISON: [facility], CR, CHEST 2VW, 08/25/2012, 17:19. [facility], CT, CHEST/ABD/PELVIS W/CON (PNL), 04/18/2014, 10:19. [facility], CT, CT ANGIO CHEST ABD, 05/03/2016, 4:54. [facility], CR, CHEST 1VW (PORTABLE), 10/04/2011, 9:16. FINDINGS: Surgical changes and devices: Surgical clips in mediastinum. Lungs and pleura: No pleural effusions or pneumothorax. Lungs are clear. Mediastinum: Mediastinal contours appear normal. Heart size is normal. Intrathoracic stomach consistent with gastric pull-through. Bones and chest wall: No suspicious bony lesions. Overlying soft tissues appear unremarkable. Severe degenerative joint disease noted in right shoulder. IMPRESSION: No acute cardiopulmonary disease. Dictated by: Enzo Thompson M.D. on 05/03/2016 at 7:56 Approved by: Enzo Thompson M.D. on 05/03/2016 at 7:59 Cardiac Echo Impression Echocardiogram Report Name: GONZALES GARCIA JStudy Date: Height: 66 in Hospital Exam Location: [facility] Weight: 133 lb Gender: Male BSA: 1.7 m2 : 1935 Age: 80 yrs BP: 147/76 mmHg Reason For Study: SYNCOPE, HYPOTENSION History: Esophageal resection for cancer. Ordering Physician: Performed By: Kely Berrios Referring Physician: Denton Dorado Interpretation Summary The left ventricle is grossly normal size. The left ventricle is hyperdynamic. The ejection fraction is estimated to be 70-75%. The right ventricle is normal in size and function. Patient has history of esophageal resection for cancer. There appears to be still some impingement externally of the left atrial chamber but lesser than seen in 03/2011. No significant valvular pathology seen. Brief History The patient is a very pleasant 80-year-old white male with a past medical history for seizures, TIA, and esophageal cancer who was treated with esophagectomy in 2010 at [facility]. Patient began having excruciating neck pain at 11:30 PM last evening and reported that the pain became worse with movement. Patient took 500 mg of Tylenol prior to coming to the hospital and this was not helpful. He arrived by private vehicle to [facility] emergency room. After arrival to the emergency room he developed nausea which began when he entered the emergency room. He denied all other symptoms at that time such as headache, dizziness, chest pain, shortness breath , fever, chills, falls, syncope, abdominal pain, constipation, diarrhea. However, during his interview with the emergency room doctor(Dr. Justin Abarca) the patient felt like he was going to pass out. The patient appeared pale, diaphoretic and would wax and wane between alertness and lethargy. The patient had troponins drawn which were negative a CMP which was noncontributory and a white blood cell count was found to be elevated at 13.5 with a slight left shift. Which was up from 6.8 15 days prior. EKG was performed which showed sinus rhythm with a rate of 71 low voltage in the extremity leads and no change from prior EKGs. Chest x-ray showed no acute abnormalities. And due to an elevated d-dimer a CT scan of the chest was performed which showed no evidence of aortic aneurysm or dissection, no evidence of pulmonary embolus, status post esophagectomy and gastric pull up surgery, minimal dependent areas of atelectasis and no acute intra-abdominal abnormality patient was rechecked at 2: 45 AM and he was found be unresponsive for a short period he was arousable but weak. Minimal radial and carotid pulses patient was rechecked at 02 57 and blood pressure was only 92/50 due to the above findings have concern for a syncopal episode or at least presyncopal episode with severe neck pain and leukocytosis patient was brought in under observation to the hospital service.. Hospital Course The patient is a very pleasant 80-year-old white male with a past medical history for seizures, TIA, and esophageal cancer who was treated with esophagectomy in 2010 at [facility]. Patient began having excruciating neck pain at 11:30 PM last evening and reported that the pain became worse with movement. Patient took 500 mg of Tylenol prior to coming to the hospital and this was not helpful. He arrived by private vehicle to [facility] emergency room. After arrival to the emergency room he developed nausea which began when he entered the emergency room. He denied all other symptoms at that time such as headache, dizziness, chest pain, shortness breath , fever, chills, falls, syncope, abdominal pain, constipation, diarrhea. However, during his interview with the emergency room doctor(Dr. Justin Abarca) the patient felt like he was going to pass out. The patient appeared pale, diaphoretic and would wax and wane between alertness and lethargy. The patient had troponins drawn which were negative a CMP which was noncontributory and a white blood cell count was found to be elevated at 13.5 with a slight left shift. Which was up from 6.8 15 days prior. EKG was performed which showed sinus rhythm with a rate of 71 low voltage in the extremity leads and no change from prior EKGs. Chest x-ray showed no acute abnormalities. And due to an elevated d-dimer a CT scan of the chest was performed which showed no evidence of aortic aneurysm or dissection, no evidence of pulmonary embolus, status post esophagectomy and gastric pull up surgery, minimal dependent areas of atelectasis and no acute intra-abdominal abnormality patient was rechecked at 2: 45 AM and he was found be unresponsive for a short period he was arousable but weak. Minimal radial and carotid pulses patient was rechecked at 02 57 and blood pressure was only 92/50 due to the above findings have concern for a syncopal episode or at least presyncopal episode with severe neck pain and leukocytosis patient was brought in under observation to the hospital service.. Severe neck pain or torticollis -Appears to be due to degenerative disc disease and/or osteoarthritis of the cervical spine. -We will prescribe Toradol 15 mg IV every 6 hours when necessary Syncopal-like episode -Possible vasovagal near syncope or syncope. Could be related to above -Possible exhaustion from lack of sleep due to the excruciating neck pain -Start gentle IV hydration Leukocytosis with left shift -Possible occult infection yet be discovered. -Possible secondary to dehydration and current situation. -Repeat CBC in a.m. after gentle IV hydration Esophageal cancer-T3 N1 distal esophageal adenocarcinoma -Status post esophagectomy with gastric pull through surgery at [facility] in [address] Peoples -Patient follows up with Dr. Sauceda on a yearly basis. 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 Exam Exam General: The patient is in no apparent distress sitting at the side of his bed. However he is reluctant to turn his head. HEENT: Head is atraumatic normocephalic. Eyes: Pupils are equally round and reactive to light and accommodation. Extraocular muscles are intact. Sclera are white anicteric. Subconjunctival mucosa is pink. Ears and nose are unremarkable. Oropharynx: There is no mucosal lesions, there is no thrush, there is no pharyngitis. Neck: Is supple, there are no nodes, or masses, or tenderness. Chest: Is clear to auscultation and percussion. There are no rales, rhonchi, wheezes or rubs. Heart: Rate is controlled, rhythm is irregular. There is no murmur, rub or gallop. Abdomen: Good bowel sounds are present. Abdomen is soft, nontender, no organomegaly or masses were appreciated. Extremities: Are symmetrical and well perfused. There is no edema, there is no cellulitis, no rash. Neurologic: There are no focal neurological deficits. Cranial nerves II through XII are intact. There are no sensory or motor deficits. Psychiatric: Patients mood is calm and shows no sign of agitation. Genital: Deferred Rectal: Deferred Test 05/03/16 02:50 05/03/16 16:10 05/04/16 05:54 05/04/16 08:40 Prothrombin Time 10.2sec (8.1-12.5) Prothromb Time International Ratio 0.95ratio Activated Partial Thromboplast Time 23.5sec (22.8-33.0) D-Dimer 1.7mg/L (<0.50) Lactic Acid Level 1.8mmol/L (0.4-2.0) Urine Color Yellow (YELLOW) Urine Appearance Clear (CLEAR,HAZY) Urine pH 6.0 (5.0-8.0) Urine Specific [place] <1.005 (1.003-1.035) Urine Protein Negativemg/dL (NEG,TRACE) Urine Glucose (UA) Negativemg/dL (NEGATIVE) Urine Ketones Negativemg/dL (NEGATIVE) Urine Occult Blood Negative (NEGATIVE) Urine Nitrite Negative (NEGATIVE) Urine Bilirubin Negative (NEGATIVE) Urine Urobilinogen Normalmg/dL (NORMAL) Urine Leukocyte Esterase Negative (NEGATIVE) Urine RBC 0-2/hpf (0-2) Urine WBC 0-5/hpf (0-5) Urine Epithelial Cells Occasional/hpf (NONE-MOD) Urine Crystals None seen (NONE SEEN) Urine Bacteria None/hpf (NONE-FEW) Urine Hyaline Casts None/lpf (NONE) Urine Granular Casts None seen (NONE SEEN) Urine Waxy Casts None seen (NONE SEEN) Urine Red Blood Cell Casts None seen (NONE SEEN) Urine White Blood Cell Casts None seen (NONE SEEN) Urine Mucus None seen (None Seen) Urine Trichomonas None seen (NONE SEEN) Urine Yeast None (NONE SEEN) Urinalysis Comment None Urine Culture Reflexed Not indicated White Blood Count 9.1th/mm3 (3.8-10.1) Red Blood Count 4.46mil/mm3 (4.40-5.80) Hemoglobin 12.5g/dL (13.8-17.2) Hematocrit 38.8% (41.0-50.0) Mean Corpuscular Volume 87.0fL (81-100) Mean Corpuscular Hemoglobin 28.0pg (27.0-35.0) Mean Corpuscular Hemoglobin Concent 32.2% (32.0-37.0) Red Cell Distribution Width 14.6% (12.3-15.4) Platelet Count 185bil/L (150-400) Neutrophils (%) (Auto) 68.1% (40-74) Lymphocytes (%) (Auto) 18.2% (14-46) Monocytes (%) (Auto) 12.7% (4-12) Eosinophils (%) (Auto) 0.6% (0-5) Basophils (%) (Auto) 0.1% (0-3) Erythrocyte Sedimentation Rate 12mm/hr (0-30) Sodium Level 141mEq/L (134-144) Potassium Level 3.8mEq/L (3.5-5.2) Chloride Level 104mEq/L (97-108) Carbon Dioxide Level 25mmol/L (18-29) Blood Urea Nitrogen 10mg/dL (8-27) Creatinine 1.06mg/dL (0.76-1.27) Estimat Glomerular Filtration Rate 71mL/min (>59) Glucose Level 103mg/dL (60-99) Calcium Level 9.0mg/dL (8.5-10.1) Phosphorus Level 2.4mg/dL (2.5-4.9) Magnesium Level 2.1mg/dL (1.6-2.6) Total Bilirubin 0.3mg/dL (0.0-1.2) Aspartate Amino Transf (AST/SGOT) 14U/L (0-50) Alanine Aminotransferase (ALT/SGPT) 13U/L (0-44) Alkaline Phosphatase 125U/L (25-160) C-Reactive Protein 9.7mg/dL (0.0-0.5) Total Protein 7.3g/dL (6.4-8.4) Albumin 3.7g/dL (3.4-5.0) Lipase 25U/L (13-60) Troponin T < 0.010ug/L (0.0-0.011) Discharge Medications Discharge Medications Aspirin (Aspirin) 81 Mg Tablet 81 MG PO DAILY Prescribed by: SEBAS GROSS MD Metoprolol Tartrate (Metoprolol Tartrate) 25 Mg Tablet 12.5 MG PO BID (Reported ) Omeprazole (Omeprazole) 20 Mg Tablet.dr 20 MG PO DAILY (Reported) Phenytoin Sodium ER (Dilantin) 100 Mg Capsule 100 MG PO BID (Reported) Phenytoin Sodium ER (Dilantin) 30 Mg Capsule 60 MG PO BID (Reported) Followup Plan Disposition: The patient was discharged home. Discharge Diet: Heart Healthy Discharge Activity: No restrictions (May resume usual activities gradually as tolerated) Follow-up Provider: Dneton Dorado MD Follow-up with PCP in: 1 week Time spent The time spent on the discharge of this patient was over thirty minutes, over half of which was involved in counseling and coordination of care. Donavan Blair MD May 12, 2016 13:17
== END 2016-05-04 16:40 | disposition home or self-care (01) ==
LOC: SED 02:22 → OSC 06:15
PROVIDERS: ADMIT Internal Medicine; ATTEND Internal Medicine Infectious Disease
DX: M43.6 Torticollis (principal); M50.30 Other cervical disc degeneration, unspecified cervical region; G40.909 Epilepsy, unspecified, not intractable, without status epilepticus; Z86.73 Personal history of transient ischemic attack (TIA), and cerebral infarction without residual deficits; Z85.01 Personal history of malignant neoplasm of esophagus; I10 Essential (primary) hypertension; K21.9 Gastro-esophageal reflux disease without esophagitis
CPT/HCPCS: 36415; 70498; 71010; 71275; 74175; 76999; 80053; 81000; 83605; 83690; 83735; 84100; 84484; 85025; 85379; 85610; 85651; 85730; 86140; 87086; 92610; 93005; 93880; 96361; 96374; 96375; 96376; 97161; 99291; C8929; G0378; G8996; G8997; J1650; J2250; J2405; J3010; J7030; J7120; Q9967

== ENCOUNTER 2016-05-07 14:21 | Observation (INO) | payer MEDICARE ==
[~2016-05-07] VITALS: Ht 167.6 cm; Wt 59.4 kg
[2016-05-07 14:27] VITALS: BP 151/84; PULSE 62; RESP 14; O2SAT 100
[2016-05-07 15:10] VITALS: BP 165/73; PULSE 107; RESP 26; O2SAT 92
--- NOTE | 2016-05-07 15:27 | ED.REPORT ---
HPI-Stroke / CVA May 07, 2016 ED Provider: Micheal Koroma MD 81 year old male with a history of T3 N1 distal esophageal adenocarcinoma, atrial fibrillation, and HTN presents to the ER via EMS with left sided facial numbness onset around 11:30 today while playing bridge. He also admits to headache, and left leg numbness, though he denies any focal weakness, changes in his speech or cognitive abilities, and recent falls or trauma. Symptoms are currently resolved. Shortly after symptom onset he returned home and called his primary care physician's office, Dr. Dorado, and was referred here to the ER. Patient was seen here in the hospital over the weekend and treated for torticollis. EMR indicates history of CVA, though patient denies this. Nursing Notes Stated Complaint: LEFT SIDED FACIAL NUMBNESS Chief Complaint: Neuro Symptoms/ Deficits Nursing Notes Reviewed: Yes (Strolby not reconciled) Allergies: Coded Allergies: Procaine HCl (Verified Allergy, Intermediate, racing heart, 05/03/16) acyclovir (Verified Allergy, Unknown, 05/03/16) aspirin (Verified Allergy, Unknown, 05/03/16) valacyclovir (Verified Allergy, Unknown, 05/03/16) Uncoded Allergies: ADKINS PEPPERS (Allergy, Unknown, 09/05/14) Scheduled Metoprolol Tartrate (Metoprolol Tartrate) 25 Mg Tablet 12.5 MG PO BID (Reported ) Omeprazole (Omeprazole) 20 Mg Tablet.dr 20 MG PO DAILY (Reported) Phenytoin Sodium ER (Dilantin) 100 Mg Capsule 100 MG PO BID (Reported) Phenytoin Sodium ER (Dilantin) 30 Mg Capsule 60 MG PO BID (Reported) General Time Seen by Provider: 15:10 Chief Complaint Numbness Face left Hx Obtained From: Patient Arrived By: Ambulance Time last known well 11:30 today Sudden in Onset?: Yes Symptom Duration: Since onset Progression Since Onset: Gradually improving Associated with: Reports: Headache, Denies: Confusion Context Related History: Denies: Cerebrovascular accident Risk Factors NIH Stroke Scale Level of Consciousness: Alert and responsive (0) Ask Month & Age: Both questions right (0) Open/Close Eyes/Hand Black Puller: Performs both tasks (0) Horizontal EO Movements: None (0) Visual Ma: No visual loss (0) Facial Palsy: Normal symmetry (0) Right Arm Motor Drift (10s): No drift 10 sec (0) Left Arm Motor Drift (10s): No drift 10 sec (0) Right Leg Motor Drift (5s): No drift 5 sec (0) Left Leg Motor Drift (5s): No drift 5 sec (0) Limb Ataxia FNF/Heel-Nova: No ataxia (0) Sensation (Arms/Legs/Face): No sensory loss (0) Language Aphasia: No aphasia, normal (0) Dysarthria: No dysarthria, normal (0) Extinction/Inattention: No exctinct/inattent (0) NIHSS Score: 0 Time NIHSS Performed: 15:52 Date NIHSS Performed: May 07, 2016 )( CVA Risk Stratification Age >60 Atrial fibrillation HypertensionNo EtOH use, No Prior CVA/TIA, No Smoking Risk factors reviewed Past Medical History Past Medical History Notes: Oncologist Dr. Ferrell Esophageal FB - removed endoscopy 05/21 Esophageal FB - passed w/glucagon and coke 09/2014 Past Medical History h/o T3 N1 distal esophageal adenocarcinoma Hypertension Atrial fibrillation CVA Diverticulitis GERD Reports: Cancer, Stroke Past Surgical History Endoscopy Cholecystectomy Port surgeries Knee surgeries Esophageal surgery - partial esophagectomy in 2010 and Luc[facility] Bartholomew Family History Noncontributory Smoking History Never Smoker Social History Alcohol Use: Denies alcohol use Drug Use: Denies drug use Other Social History: , Local resident Ambulatory Status Independent Review of Systems Constitutional: Denies: Chills, Fever Respiratory: Denies: Non-productive cough, Shortness of breath Cardiovascular: Denies: Chest pain GI: Denies: Nausea, Vomiting Neurologic: Reports: Headache, Numbness (Left Face), Denies: Change LOC, Confusion, Dizziness, Focal weakness, Seizure, Slurred speech, Syncope, Unable to speak, Vision change, Weakness Complete sys rev & neg: except as marked. Physical Exam Initial Vital Signs Vital Signs (First) Date Time Temp Pulse Resp B/P Pulse Ox O2 Delivery O2 Flow Rate FiO2 05/07/16 14:27 36.7 62 14 151/84 100 Room Air Initial VS: Reviewed, Vital signs normal ENT: Mucous membranes moist, Conjunctiva normal, No scleral icterus Abdomen / GI: Soft, Non-tender, No guarding, No rebound, No distention Extremities: Vascular intact, Neuro intact, No swelling, No tenderness Skin: Warm, Dry, No cyanosis Psychiatric: Mood/affect normal, Behavior normal, Normal thought content General/Constitutional: Awake, Alert, Well developed, Well nourished Hoarse voice. Head / Eyes: Atraumatic, Normocephalic Neck: Supple, Full range of motion, No swelling, Non-tender, No carotid bruit Respiratory / Chest: Breath sounds NL, Breath sounds = bilat, No respiratory distress, No rales, No rhonchi, No wheezing Cardiovascular: Heart rate NL, Regular rhythm, Heart sounds NL, No murmurs, Peripheral circulation NL Neurologic: Oriented X3, Speech NL, No motor deficits, No sensory deficits See NIH Stroke Scale in the Risk section of this note. Interpretation & Diagnostics Lab Results Interpretation Result Diagram: 05/07/16 1600 05/07/16 1600 Test 05/07/16 16:00 White Blood Count 4.7th/mm3 (3.8-10.1) Red Blood Count 4.08mil/mm3 (4.40-5.80) Hemoglobin 11.3g/dL (13.8-17.2) Hematocrit 35.7% (41.0-50.0) Mean Corpuscular Volume 87.5fL (81-100) Mean Corpuscular Hemoglobin 27.7pg (27.0-35.0) Mean Corpuscular Hemoglobin Concent 31.7% (32.0-37.0) Red Cell Distribution Width 14.5% (12.3-15.4) Platelet Count 198bil/L (150-400) Neutrophils (%) (Auto) 62.4% (40-74) Lymphocytes (%) (Auto) 27.0% (14-46) Monocytes (%) (Auto) 8.9% (4-12) Eosinophils (%) (Auto) 1.3% (0-5) Basophils (%) (Auto) 0.2% (0-3) Prothrombin Time 9.9sec (8.1-12.5) Prothromb Time International Ratio 0.93ratio Activated Partial Thromboplast Time 26.8sec (22.8-33.0) Sodium Level 141mEq/L (134-144) Potassium Level 4.1mEq/L (3.5-5.2) Chloride Level 104mEq/L (97-108) Carbon Dioxide Level 24mmol/L (18-29) Blood Urea Nitrogen 13mg/dL (8-27) Creatinine 0.98mg/dL (0.76-1.27) Estimat Glomerular Filtration Rate 78mL/min (>59) Glucose Level 104mg/dL (60-99) Calcium Level 8.3mg/dL (8.5-10.1) Magnesium Level 2.2mg/dL (1.6-2.6) Total Bilirubin 0.2mg/dL (0.0-1.2) Aspartate Amino Transf (AST/SGOT) 28U/L (0-50) Alanine Aminotransferase (ALT/SGPT) 23U/L (0-44) Alkaline Phosphatase 117U/L (25-160) Troponin T < 0.010ug/L (0.0-0.011) Total Protein 7.1g/dL (6.4-8.4) Albumin 3.8g/dL (3.4-5.0) Triglycerides Level 60mg/dL (0-149) Cholesterol Level 133mg/dL (100-199) LDL Cholesterol, Calculated 71.000mg/dL (0-99) VLDL Cholesterol 12.000mg/dL HDL Cholesterol 50mg/dL (>39) Cholesterol/HDL Ratio 2.66 (0.0-4.4) Hold Patton Top Tube Received (Received) Lab Results Interpretation: CBC normal CMP normal ECG Interpretation ECG Interpretation: Sinus bradycardia, rate 59 Time: 15:57 Normal ECG Interpretation: Normal ECG w/ rate of..., Normal sinus rhythm, No acute ischemic changes CT Head Interpretation IMPRESSION: No acute process. Dictated by: Denise Cowart M.D. on 05/07/2016 at 15:37 Approved by: Denise Cowart M.D. on 05/07/2016 at 15:43 Study: Head CT no contrast Interpretation / Wet Read by: Interpret - Radiologist Re-Eval/Medical Decision Med Decision/Clinical Course This is an 81-year-old male has a history of paroxysmal A. fib but is not on anticoagulation due to her history of bleeding-although it was GI bleeding that led to the detection of an esophageal cancer that has been subsequently been resected and he reports to be in remission- who presents complaining of an episode of left face and left leg numbness without weakness that lasted about an hour and 15 minutes this morning, but essentially resolved. He denies a prior history of TIA or stroke to me, although his EMR indicates a previous history of a possible CVA-he was just admitted for a syncopal weakness spelled just earlier this weekend. Patient has an NIH stroke scale 0, he is not a candidate for TPA given the absence of symptoms or findings. History in a sinus rhythm, but again admits to a long history of atrial fibrillation. Noncontrast head CT is normal. Blood work labs are normal. He is being admitted for further workup including an MRI. It might discuss with the patient it sounds that he may actually be a candidate for anticoagulation with low-dose aspirin at this stage-given the problems with aspirin he had were prior to his esophageal CA management many years ago. Case has been discussed with the admitting hospitalist. Patient did not want aspirin at the moment, so has not yet been given-recently taking he might agree to take low-dose aspirin. Source of Hx: Old records Re-Evaluation/Progress : Time of Eval: 15:20 Re-Evaluation/Progress Note: Discussed plan to admit. Patient is amenable to the plan. Consultation : Referral / Consult Name: Rosario Reynolds MD Consulted With: Hospitalist Call Returned at: 17:26 Storage Engineer: Agrees with eval, Agrees with plan, Accepts admit Differential Diagnosis: Positive: Atrial fibrillation (history of, currently in a sinus rhythm), Transient ischemic attack, Negative: Electrolyte disorder, Epidural hemorrhage, Hyperglycemia, Intoxication, other drug, Intraparench hemorrhage, Seizure disorder, Sepsis, Subarachnoid hemorrhage, Subdural hemorrhage Counseled Regarding: Diagnosis, Lab results, Need for admission Patient Discharge & Departure Impression: Primary Impression: TIA (transient ischemic attack) Transient cerebral ischemia type: unspecified Qualified Code: G45.9 - Transient cerebral ischemic attack, unspecified Disposition: ADMITTED TO HOSPITAL Discharge Condition All VS Reviewed: Yes Condition: Stable Referrals: Denton Dorado MD (PCP) Amena Attestation Portions of this note were transcribed by Edwardo Butterfield. I, Dr. Koroma, personally performed the history, physical exam and medical decision-making; I reviewed and confirmed the accuracy of the information in the transcribed note. Signed by: Amena Hirsch, 05/07/2016 and 17:28. copies to: Denton Dorado MD, Matthew F MD May 07, 2016 15:27 EDWARDO BUTTERFIELD May 07, 2016 15:57
--- NOTE | 2016-05-07 15:45 | DRSVH ---
PROCEDURE: CT BRAIN WITHOUT CONTRAST ([id number]) INDICATIONS: Stroke TECHNIQUE: Noncontrast 4.5 mm thick angled axial sections acquired from the foramen magnum to the vertex, with c oronal reformats. COMPARISON: [facility], CT, CT BRAIN WO CON, 06/25/2015, 21:46. [facility], CT, BRAIN W/O CONTRAST, 10/04/2011, 8:44. FINDINGS: Image quality: Excellent. CSF spaces: Basal cisterns are patent. No extra-axial fluid collections. The ventricles are symmet sherron in size and shape. Brain: No intracranial bleeds or masses. There is cerebral volume loss for age, with resultant vent ricular and sulcal prominence. There are periventricular and deep white matter chronic small vessel ischemic changes. There is intracranial internal carotid artery atherosclerosis. Skull and face: Calvarium and visualized facial bones appear intact, without suspicious lesions. Sinuses: Visualized sinuses and mastoids are clear. IMPRESSION: No acute process. Dictated by: Denise Cowart M.D. on 05/07/2016 at 15:37 Approved by: Denise Cowart M.D. on 05/07/2016 at 15:43
[2016-05-07 16:10] VITALS: BP 140/86; PULSE 58; RESP 16; O2SAT 98
[2016-05-07 16:15] LABS: BASOPHILS % (AUTO) 0.2 % (0-3); EOSINOPHILS % (AUTO) 1.3 % (0-5); MONOCYTES % (AUTO) 8.9 % (4-12); Mean Corpuscular Hemoglobin 27.7 pg (27.0-35.0); Mean Corpuscular Volume 87.5 fL (81-100); NEUTROPHILS % (AUTO) 62.4 % (40-74); Platelet Count 198 bil/L (150-400)
[2016-05-07 16:35] LABS: INR 0.93 ratio
[2016-05-07 16:40] LABS: TROPONIN T < 0.010 ug/L (0.0-0.011)
[2016-05-07 17:10] VITALS: BP 140/80; PULSE 59; RESP 15; O2SAT 100
[2016-05-07] MEDS ORDERED: Polyethylene Glycol (PEG) 17 Gm Powder PO PRN (17:40)
[2016-05-07] MEDS ORDERED: Ondansetron 2 mg/mL 2 mL Inj IV PRN (17:40)
[2016-05-07] MEDS ORDERED: Alum-Mag Hydrox-Simeth 30 mL Suspension PO PRN (17:40)
[2016-05-07 18:02] LABS: Magnesium 2.2 mg/dL (1.6-2.6)
--- NOTE | 2016-05-07 18:05 | PCM.HPMED ---
Subjective Date of Service May 07, 2016 Primary Provider: Admitting Physician: Rosario Reynolds MD Primary Care Physician: Denton Dorado MD Attending Physician: Rosario Reynolds MD Admit Status: From the Emergency Department, 23-Hour Observation, Admit to [place] Team, Remote Telemetry Chief Complaint: Left facial numbness and left lower leg numbness History of Present Illness: This is an 81-year-old male who has a history of T3 N1 distal esophageal adenocarcinoma, history of paroxysmal atrial fibrillation and hypertension who presented to the emergency room by EMS with complaints of left-sided facial numbness which started about 11:30 AM and lasted about an hour and a half. He also developed some left lower leg numbness about mid calf down which has improved but has not completely gone away. He noted no other neurological changes. He had no motor weakness. Had no change in speech. He denied any headaches or lightheadedness. He denies any chest pain or palpitations. He does not take aspirin as he was told or had a problem with GI bleeding numerous years ago when he had esophageal carcinoma diagnosed. She according to patient is cancer free at this time. He did have an esophagectomy done for this at [facility] approximately 5 years ago. Patient's evaluation in the emergency room includes a negative CT of head without contrast. EKG is sinus at a rate of 59 with out any acute findings. Review of Systems: All other review of systems are reviewed and are negative except for as in history of present illness. Of note patient did have a recent admission May 03 with discharge the following day for 4 to call us secondary to GI generator to disease of the cervical spine. He had a presyncopal episode which was thought to be due to that diagnosis. Allergies Coded Allergies: Procaine HCl (Verified Allergy, Intermediate, racing heart, 05/03/16) acyclovir (Verified Allergy, Unknown, 05/03/16) aspirin (Verified Allergy, Unknown, 05/03/16) valacyclovir (Verified Allergy, Unknown, 05/03/16) Uncoded Allergies: ADKINS PEPPERS (Allergy, Unknown, 09/05/14) Home Medications Scheduled Metoprolol Tartrate (Metoprolol Tartrate) 25 Mg Tablet 12.5 MG PO BID (Reported ) Omeprazole (Omeprazole) 20 Mg Tablet.dr 20 MG PO DAILY (Reported) Phenytoin Sodium ER (Dilantin) 100 Mg Capsule 100 MG PO BID (Reported) Phenytoin Sodium ER (Dilantin) 30 Mg Capsule 60 MG PO BID (Reported) PMH Past Medical History Notes: Oncologist Dr. Ferrell Esophageal FB - removed endoscopy 05/21 Esophageal FB - passed w/glucagon and coke 09/2014 Past Medical History H/o T3 N1 distal esophageal adenocarcinoma Hypertension Atrial fibrillation, paroxysmal CVA Diverticulitis GERD History of seizure disorder starting at age 7 history of GERD Past Surgical History Endoscopy Cholecystectomy Port surgeries Knee surgeries Esophageal surgery - partial esophagectomy in 2010 and Lucinda Bartholomew Family History Patient's father in his 60s of a leg aneurysm Patient's mother of an overdose of aspirin at the age of 82 Sister who smokes 4 packs a day and is 80 to 1 brother who at the age of 14 from influenza Social History Hx Alcohol Use: Yes (Patient quit drinking in 1960. Prior to that he "drank like a fish".) Hx Substance Use: No Hx Tobacco Use: No Smoking Status: Never Smoker Living Arrangement: Alone Exam Vital Signs Vital Sign - Last Date Time Temp Pulse Resp B/P Pulse Ox O2 Delivery O2 Flow Rate FiO2 05/07/16 17:26 59 15 140/80 100 Room Air 05/07/16 14:27 36.7 Exam Constitutional: Elderly man in no acute distress Head: Normocephalic atraumatic Eyes: PERRLA DC EOMI Neck: Carotids 2+ over 4 without bruits Chest: Clear to auscultation Cor: Regular rate and rhythm S1-S2 without murmur Abdomen: Soft nontender bowel sounds present Extremities: No pedal edema Skin: No rashes Psych: Mood and affect are appropriate Neuro: Alert and oriented 3, motor and sensory are intact bilaterally. Lab and Diagnostics Result Diagram: 05/07/16 1600 05/07/16 1600 12-lead ECG Sinus at a rate of 59 no acute abnormalities noted Assessment & Plan # Possible TIA, acute, present on admission We will proceed with checking MRI of brain, CTA of head and neck, echocardiogram(patient did have an echocardiogram for his recent visit to but given the fact that he did not have symptoms at that time I think it would be prudent to recheck) Will start ASA 81 mg by mouth daily Consider initiation of a statin Check lipid panel in a.m. # History of paroxysmal atrial fibrillation, chronic, present on admission Will place on telemetry May need Holter monitor as an outpatient. # History of seizure disorder, chronic, has been quiescent, Patient currently is on Dilantin and will check level # History of esophageal carcinoma, The patient currently in remission at this time. # DVT prophylaxis Will place on SCDs and hold subcutaneous anti-coagulation prophylactic given patient's previous concern regarding GI bleed # CODE STATUS Patient is full code VTE Mechanical Devices: Intermittant Pneumatic CD Resuscitation Status: CPR: Attempt Resuscitation Time spent 60 minutes Rosario Reynolds MD May 07, 2016 18:05
[2016-05-07 18:28] VITALS: BP 156/92; PULSE 63; RESP 16; O2SAT 98
--- NOTE | 2016-05-07 18:46 | DRSVH ---
PROCEDURE: MRI STROKE PROTOCOL ([id number]) Pre- and post-contrast brain MRI, non-contrast brain MR angiogram, pre- and postcontrast neck MR aleksey ogram INDICATIONS: L facial, arm numbness TECHNIQUE: Brain: Noncontrast axial T1 spin echo, axial T2 fast spin echo, sagittal and axial FLAIR, coronal T2 fast spin echo, axial gradient echo, axial diffusion and ADC through the brain. After the administr ation of contrast, axial 3D VIBE of the cranial vasculature and brain. Brain MRA: Non-contrast 3-D time of flight MR angiogram, with multiple qzgahpq-rchetzfzr-tivrkqokdb (MIP) reformats performed. Neck MRA: Axial and sagittal TruFISP through the neck. Coronal dynamic MR angiogram during administ ration of contrast in the arterial and venous phases, with 3-dimenstional qligijj-qfyrnmywt-sbulduodt n (MIP) reformats constructed from subtraction images. COMPARISON: [facility], CT, CT BRAIN WO CON, 05/07/2016, 15:28. FINDINGS: Image quality: Excellent. BRAIN: CSF spaces: Ventricles are normal in size and shape. Mild, diffuse prominence of CSF space. Basal ci sterns are patent. No extra-axial fluid collections. Brain: No intracranial bleeds or mass effects. Winter-white matter interface is normal. Diffusion we ighted images show no acute ischemic insults. A few, very small, punctate foci of increased T2 signal noted in the subcortical white matter tracts. Brainstem appears normal. Normal intravascular flow v oids are present. No abnormal intracranial enhancement. Skull and face: Calvarial marrow signal is normal. Orbits appear normal. Sinuses: Sinuses and mastoids are clear. BRAIN MR ANGIOGRAM: Anterior circulation: Intracranial internal carotid arteries are normal in size and enhancement. Th e flow within the paired anterior cerebral arteries is normal and symmetric. The flow within the mid dle cerebral arteries is normal and symmetric. The anterior communicating artery is seen. No stenos es, occlusions, or aneurysms. Posterior circulation: The visualized portions of the vertebral arteries demonstrate normal caliber, and join to form a normal appearing basilar artery. The flow within the posterior cerebral arteries is normal and symmetric. No stenoses, occlusions, or aneurysms. NECK MR ANGIOGRAM: Carotids: Great vessels demonstrate a conventional anatomy as they arise from the aortic arch. The origins of the common carotid arteries appear patent. The calibers and courses of both common caroti d arteries are normal. The bifurcation regions appear normal bilaterally. Atherosclerotic irregulari ty is noted in the proximal right internal carotid artery which causes moderate, approximately 50% st enosis of the vessel. Minimal atherosclerotic irregularity is noted in the proximal left internal ca rotid artery which does not cause measurable stenosis. Posterior circulation: The origins of the vertebral arteries appear patent. More superior portions of both vertebral arteries demonstrate normal course and caliber, and join to form a normal appearing basilar artery. Miscellaneous: Subclavian arteries appear patent. Pre-contrast images through the neck show no soft tissue abnormalities. IMPRESSION: BRAIN MRI: 1. No acute intracranial disease process. 2. No areas of acute or chronic infarction. 3. Mild, diffuse volume loss. 4. Minimal subcortical white matter chronic microvascular ischemic changes. BRAIN MR ANGIOGRAM: Negative examination. NECK MR ANGIOGRAM: 1. Approximately 50% stenosis of the proximal right internal carotid artery. 2. Minimal atherosclerotic disease involving the proximal left internal carotid artery without measu rable stenosis. 3. Vertebral arteries are fully patent. The estimate of stenosis included in the report of the imaging study was calculated using the NASCET method Dictated by: Vaishali Astorga MD, PhD on 05/07/2016 at 18:37 Approved by: Vaishali Astorga MD, PhD on 05/07/2016 at 18:45
--- NOTE | 2016-05-07 19:52 | NUR ---
Pt in room 1016 and in bed at start of shift. Per report of previous RN he arrived to unit at 1830. Awaiting new diet orders, pt passed swallow eval by RN in ER. Pt is anxious to eat, states he eats q3h due to previous stomach/esophageal surgery. Addendum: 05/08/16 at 0714 by DAREN LYONS RN Per telephone order diet changed to general. PT tolerated dinner, 30% eaten, with 1:1 supervision. Heartburn this shift, maalox effective. Alert and Oriented. Care continues
[2016-05-07 20:27] VITALS: BP 168/89; PULSE 61; O2SAT 99
[2016-05-07 22:41] LABS: APPEARANCE,URINE CLEAR (CLEAR,HAZY); COLOR,URINE YELLOW (YELLOW); OCCULT BLOOD,URINE NEGATIVE (NEGATIVE); UROBILINOGEN,URINE NORMAL (NORMAL)
[2016-05-07] MEDS: Phenytoin 100 mg ER Capsule PO SCH (22:43)
[2016-05-07] MEDS: PHENYTOIN 30 MG PO SCH (22:44)
[2016-05-08] VITALS (10 sets, daily range): BP systolic 133–152; BP diastolic 77–88; PULSE 61–85; RESP 16–20; O2SAT 96–100
[2016-05-08] MEDS: PHENYTOIN 30 MG PO SCH ×2 (08:12→22:25)
[2016-05-08] MEDS: Phenytoin 100 mg ER Capsule PO SCH ×2 (08:13→22:26)
[2016-05-08] MEDS: Pantoprazole 20 mg ER24 Tablet PO SCH (08:13)
--- NOTE | 2016-05-08 10:56 | DRSVH ---
PROCEDURE: CT ANGIO HEAD AND NECK (P) INDICATIONS: Stroke/TIA TECHNIQUE: Pre-contrast 4.5 mm thick sections acquired from the foramen magnum to the vertex. After the adminis tration of intravenous contrast, 1 mm thick sections acquired from the aortic arch through the [place] of [place]. Post-contrast 4.5 mm thick sections then re-acquired from the foramen magnum to the vert ex. 3-dimensional tqkayem-inxpyewiy-mnoofzdyuv (MIP) and/or volume rendering reformats were acquired of the central intracranial vasculature and neck separately. For radiation dose reduction, the foll owing was used: automated exposure control, adjustment of mA and/or kV according to patient size. COMPARISON: [facility], , MR STROKE PROTOCOL, 05/07/2016, 17:48. FINDINGS: Image quality: Limited secondary to beam hardening artifact related to metallic dental hardware. BRAIN: CSF spaces: Ventricles are normal in size and shape. Basal cisterns are patent. No extra-axial flu id collections. Brain: No midline shift. No intracranial bleeds or masses. Winter-white matter interface appears int act. Skull and face: Calvarium and facial bones appear intact, without suspicious lesions. Orbits appear normal. Sinuses: Sinuses and mastoids are clear. HEAD CT ANGIOGRAPHY: Anterior circulation: Intracranial internal carotid arteries are normal in size and flow. Scattered atherosclerotic calcifications noted in the cavernous segments of the internal carotid arteries bila terally which do not cause appreciable stenosis. The flow within the paired anterior cerebral arterie s is normal and symmetric. The flow within the middle cerebral arteries is normal and symmetric. Th e anterior communicating artery is seen. No aneurysms are seen. Posterior circulation: Visualized portions of the vertebral arteries demonstrate normal caliber, and join to form a normal appearing basilar artery. Flow within the posterior cerebral arteries is norm al and symmetric. No aneurysms are seen. NECK CT ANGIOGRAPHY: Carotid system: The great vessels demonstrate a conventional anatomy as they arise from the aortic a rch. The origins of the common carotid arteries appear patent. The common carotid arteries demonstr ate normal caliber and courses. Calcified and soft atherosclerotic plaque noted proximal right internet systems administrator al carotid artery which causes approximately 50% stenosis. The proximal left internal carotid artery is not visualized due to artifact related to metallic dental hardware and contrast material which ref luxed into the left internal jugular vein. Posterior circulation: The origins of the vertebral arteries both appear widely patent. The more abel perior extracranial portions of both vertebral arteries also demonstrate normal courses and calibers. They join to form a normal appearing basilar artery. Soft tissues: Visualized neck soft tissues demonstrate no suspicious abnormalities. Bones: No suspicious bony lesions. Visualized cervical spine appears normally aligned. IMPRESSION: 1. Image quality limited secondary to beam hardening artifact related to metallic dental hardware and reflux of contrast material into the left internal jugular vein. 2. Atherosclerotic calcification noted in the cavernous segments of the intracranial internal carotid arteries bilaterally without measurable stenosis. 3. Approximately 50% atherosclerotic stenosis of the proximal right internal carotid artery. 4. Proximal left internal carotid artery is obscured by artifact related to metallic dental hardware and contrast material in the left internal jugular vein cannot be evaluated. The visualized portions of the left internal carotid artery cervical segments are fully patent. Dictated by: Vaishali Astorga MD, PhD on 05/08/2016 at 10:19 Approved by: Vaishali Astorga MD, PhD on 05/08/2016 at 10:55
--- NOTE | 2016-05-08 13:13 | NUR ---
Social Work Initial Assessment: SW met with patient at bedside to discuss discharge plan. Patient is a 81 year old male admitted under observation status on 05/07/16 for TIA. Patient payer as [employer]. 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 Patient PCP as MD Dorado. Patient oncologist aas MD Lopez. Patient states residing alone in [place]. Patient states currently at [place] [facility]. Patient states pharmacy of choice as [facility]. patient has HHC history in past. Patient has no previous SNF history. Patient has a cane and crutches at home. Patient states having AD on file. Patient states being independent with needs and states that he still drives. Patient emergency contact as son Matt and daughter Joellen Varghese, [phone] who to provide transport home and to check in with care needs. Patient denied HHC at this time. Patient states having no other identified discharge needs at this time. SW to follow. PLAN: Home alone via POV. SW to follow pending further clinical course. Patient denied HHC at this time. SW to follow. Iesha ABDALLA Addendum: 05/08/16 at 1319 by KHOI PIMENTEL Amended: Links added.
--- NOTE | 2016-05-08 16:40 | PCM.PNMED ---
Subjective Date of Service May 08, 2016 Subjective Patient without complaint today. He has been walking the halls without any issues. Exam Vital Signs Vital Sign - Last Date Time Temp Pulse Resp B/P Pulse Ox O2 Delivery O2 Flow Rate FiO2 05/08/16 13:01 67 16 147/88 100 Room Air 05/08/16 12:18 36.4 Intake and Output 05/07/16 05/07/16 05/08/16 Cumulative From/Thru 15:00 23:00 07:00 05/07/16 14:27 - 05/08/16 05:19 Intake Total 1237 ml 1237 ml Output Total 450 ml 1000 ml 1450 ml Balance -450 ml 237 ml -213 ml Intake Oral 1237 ml 1237 ml Output Urine Total 450 ml 1000 ml 1450 ml # Bowel Movements 0 0 Exam Constitutional: Elderly man in no acute distress Head: Normocephalic and Chest: Clear to auscultation Cor: Regular rate and rhythm S1-S2 without murmur Abdomen: Soft nontender bowel sounds present Extremities: No pedal edema Neuro: Alert and oriented 3, motor and sensory are intact bilaterally Lab and Diagnostics Laboratory Tests 72 Hours Test 05/07/16 16:00 05/07/16 21:45 05/07/16 21:54 White Blood Count 4.7th/mm3 (3.8-10.1) Red Blood Count 4.08mil/mm3 (4.40-5.80) Hemoglobin 11.3g/dL (13.8-17.2) Hematocrit 35.7% (41.0-50.0) Mean Corpuscular Volume 87.5fL (81-100) Mean Corpuscular Hemoglobin 27.7pg (27.0-35.0) Mean Corpuscular Hemoglobin Concent 31.7% (32.0-37.0) Red Cell Distribution Width 14.5% (12.3-15.4) Platelet Count 198bil/L (150-400) Neutrophils (%) (Auto) 62.4% (40-74) Lymphocytes (%) (Auto) 27.0% (14-46) Monocytes (%) (Auto) 8.9% (4-12) Eosinophils (%) (Auto) 1.3% (0-5) Basophils (%) (Auto) 0.2% (0-3) Prothrombin Time 9.9sec (8.1-12.5) Prothromb Time International Ratio 0.93ratio Activated Partial Thromboplast Time 26.8sec (22.8-33.0) Sodium Level 141mEq/L (134-144) Potassium Level 4.1mEq/L (3.5-5.2) Chloride Level 104mEq/L (97-108) Carbon Dioxide Level 24mmol/L (18-29) Blood Urea Nitrogen 13mg/dL (8-27) Creatinine 0.98mg/dL (0.76-1.27) Estimat Glomerular Filtration Rate 78mL/min (>59) Glucose Level 104mg/dL (60-99) Hemoglobin A1c 5.8% (4.8-5.6) Calcium Level 8.3mg/dL (8.5-10.1) Magnesium Level 2.2mg/dL (1.6-2.6) Total Bilirubin 0.2mg/dL (0.0-1.2) Aspartate Amino Transf (AST/SGOT) 28U/L (0-50) Alanine Aminotransferase (ALT/SGPT) 23U/L (0-44) Alkaline Phosphatase 117U/L (25-160) Troponin T < 0.010ug/L (0.0-0.011) Total Protein 7.1g/dL (6.4-8.4) Albumin 3.8g/dL (3.4-5.0) Triglycerides Level 60mg/dL (0-149) Cholesterol Level 133mg/dL (100-199) LDL Cholesterol, Calculated 71.000mg/dL (0-99) VLDL Cholesterol 12.000mg/dL HDL Cholesterol 50mg/dL (>39) Cholesterol/HDL Ratio 2.66 (0.0-4.4) Hold [place]ton Top Tube Received (Received) Urine Color Yellow (YELLOW) Urine Appearance Clear (CLEAR,HAZY) Urine pH 7.0 (5.0-8.0) Urine Specific Kenneth 1.010 (1.003-1.035) Urine Protein Negativemg/dL (NEG,TRACE) Urine Glucose (UA) Negativemg/dL (NEGATIVE) Urine Ketones Negativemg/dL (NEGATIVE) Urine Occult Blood Negative (NEGATIVE) Urine Nitrite Negative (NEGATIVE) Urine Bilirubin Negative (NEGATIVE) Urine Urobilinogen Normalmg/dL (NORMAL) Urine Leukocyte Esterase Negative (NEGATIVE) Urine RBC 0-2/hpf (0-2) Urine WBC 0-5/hpf (0-5) Urine Epithelial Cells Occasional/hpf (NONE-MOD) Urine Crystals Oxalic acid crystals (NONE Urine Bacteria None/hpf (NONE-FEW) Urine Hyaline Casts None/lpf (NONE) Urine Granular Casts None seen (NONE SEEN) Urine Waxy Casts None seen (NONE SEEN) Urine Red Blood Cell Casts None seen (NONE SEEN) Urine White Blood Cell Casts None seen (NONE SEEN) Urine Mucus None seen (None Seen) Urine Trichomonas None seen (NONE SEEN) Urine Yeast None (NONE SEEN) Urine Culture Reflexed Not indicated Phenytoin (Dilantin) Level 5.0uG/mL (10.0-20.0) Result Diagram: 05/07/16 1600 05/07/16 1600 X-Rays, CTs and MRIs PROCEDURE: CT ANGIO HEAD AND NECK (P) INDICATIONS: Stroke/TIA TECHNIQUE: Pre-contrast 4.5 mm thick sections acquired from the foramen magnum to the vertex. After the administration of intravenous contrast, 1 mm thick sections acquired from the aortic arch through the [place] of [place]. Post-contrast 4.5 mm thick sections then re-acquired from the foramen magnum to the vertex. 3- dimensional ugparut-ymmzgaarm-opajbmdvol (MIP) and/or volume rendering reformats were acquired of the central intracranial vasculature and neck separately. For radiation dose reduction, the following was used: automated exposure control, adjustment of mA and/or kV according to patient size. COMPARISON: [facility], , MR STROKE PROTOCOL, 05/07/2016, 17:48. FINDINGS: Image quality: Limited secondary to beam hardening artifact related to metallic dental hardware. BRAIN: CSF spaces: Ventricles are normal in size and shape. Basal cisterns are patent. No extra-axial fluid collections. Brain: No midline shift. No intracranial bleeds or masses. Winter-white matter interface appears intact. Skull and face: Calvarium and facial bones appear intact, without suspicious lesions. Orbits appear normal. Sinuses: Sinuses and mastoids are clear. HEAD CT ANGIOGRAPHY: Anterior circulation: Intracranial internal carotid arteries are normal in size and flow. Scattered atherosclerotic calcifications noted in the cavernous segments of the internal carotid arteries bilaterally which do not cause appreciable stenosis. The flow within the paired anterior cerebral arteries is normal and symmetric. The flow within the middle cerebral arteries is normal and symmetric. The anterior communicating artery is seen. No aneurysms are seen. Posterior circulation: Visualized portions of the vertebral arteries demonstrate normal caliber, and join to form a normal appearing basilar artery. Flow within the posterior cerebral arteries is normal and symmetric. No aneurysms are seen. NECK CT ANGIOGRAPHY: Carotid system: The great vessels demonstrate a conventional anatomy as they arise from the aortic arch. The origins of the common carotid arteries appear patent. The common carotid arteries demonstrate normal caliber and courses. Calcified and soft atherosclerotic plaque noted proximal right internal carotid artery which causes approximately 50% stenosis. The proximal left internal carotid artery is not visualized due to artifact related to metallic dental hardware and contrast material which refluxed into the left internal jugular vein. Posterior circulation: The origins of the vertebral arteries both appear widely patent. The more superior extracranial portions of both vertebral arteries also demonstrate normal courses and calibers. They join to form a normal appearing basilar artery. Soft tissues: Visualized neck soft tissues demonstrate no suspicious abnormalities. Bones: No suspicious bony lesions. Visualized cervical spine appears normally aligned. IMPRESSION: 1. Image quality limited secondary to beam hardening artifact related to metallic dental hardware and reflux of contrast material into the left internal jugular vein. 2. Atherosclerotic calcification noted in the cavernous segments of the intracranial internal carotid arteries bilaterally without measurable stenosis. 3. Approximately 50% atherosclerotic stenosis of the proximal right internal carotid artery. 4. Proximal left internal carotid artery is obscured by artifact related to metallic dental hardware and contrast material in the left internal jugular vein cannot be evaluated. The visualized portions of the left internal carotid artery cervical segments are fully patent. Dictated by: Vaishali Astorga MD, PhD on 05/08/2016 at 10:19 Approved by: Vaishali Astorga MD, PhD on 05/08/2016 at 10:55 PROCEDURE: MRI STROKE PROTOCOL ([id number]) Pre- and post-contrast brain MRI, non-contrast brain MR angiogram, pre- and postcontrast neck MR angiogram INDICATIONS: L facial, arm numbness TECHNIQUE: Brain: Noncontrast axial T1 spin echo, axial T2 fast spin echo, sagittal and axial FLAIR, coronal T2 fast spin echo, axial gradient echo, axial diffusion and ADC through the brain. After the administration of contrast, axial 3D VIBE of the cranial vasculature and brain. Brain MRA: Non-contrast 3-D time of flight MR angiogram, with multiple maximum- intensity-projection (MIP) reformats performed. Neck MRA: Axial and sagittal TruFISP through the neck. Coronal dynamic MR angiogram during administration of contrast in the arterial and venous phases, with 3-dimenstional iqnhszc-bpitlukij-jdzfbredmo (MIP) reformats constructed from subtraction images. COMPARISON: [facility], CT, CT BRAIN WO CON, 05/07/2016, 15:28. FINDINGS: Image quality: Excellent. BRAIN: CSF spaces: Ventricles are normal in size and shape. Mild, diffuse prominence of CSF space. Basal cisterns are patent. No extra-axial fluid collections. Brain: No intracranial bleeds or mass effects. Winter-white matter interface is normal. Diffusion weighted images show no acute ischemic insults. A few, very small, punctate foci of increased T2 signal noted in the subcortical white matter tracts. Brainstem appears normal. Normal intravascular flow voids are present. No abnormal intracranial enhancement. Skull and face: Calvarial marrow signal is normal. Orbits appear normal. Sinuses: Sinuses and mastoids are clear. BRAIN MR ANGIOGRAM: Anterior circulation: Intracranial internal carotid arteries are normal in size and enhancement. The flow within the paired anterior cerebral arteries is normal and symmetric. The flow within the middle cerebral arteries is normal and symmetric. The anterior communicating artery is seen. No stenoses, occlusions, or aneurysms. Posterior circulation: The visualized portions of the vertebral arteries demonstrate normal caliber, and join to form a normal appearing basilar artery. The flow within the posterior cerebral arteries is normal and symmetric. No stenoses, occlusions, or aneurysms. NECK MR ANGIOGRAM: Carotids: Great vessels demonstrate a conventional anatomy as they arise from the aortic arch. The origins of the common carotid arteries appear patent. The calibers and courses of both common carotid arteries are normal. The bifurcation regions appear normal bilaterally. Atherosclerotic irregularity is noted in the proximal right internal carotid artery which causes moderate, approximately 50% stenosis of the vessel. Minimal atherosclerotic irregularity is noted in the proximal left internal carotid artery which does not cause measurable stenosis. Posterior circulation: The origins of the vertebral arteries appear patent. More superior portions of both vertebral arteries demonstrate normal course and caliber, and join to form a normal appearing basilar artery. Miscellaneous: Subclavian arteries appear patent. Pre-contrast images through the neck show no soft tissue abnormalities. IMPRESSION: BRAIN MRI: 1. No acute intracranial disease process. 2. No areas of acute or chronic infarction. 3. Mild, diffuse volume loss. 4. Minimal subcortical white matter chronic microvascular ischemic changes. BRAIN MR ANGIOGRAM: Negative examination. NECK MR ANGIOGRAM: 1. Approximately 50% stenosis of the proximal right internal carotid artery. 2. Minimal atherosclerotic disease involving the proximal left internal carotid artery without measurable stenosis. 3. Vertebral arteries are fully patent. The estimate of stenosis included in the report of the imaging study was calculated using the NASCET method Dictated by: Vaishali Astorga MD, PhD on 05/07/2016 at 18:37 Approved by: Vaishali Astorga MD, PhD on 05/07/2016 at 18:45 12-lead ECG Sinus at a rate of 59 no acute abnormalities noted Assessment & Plan # Possible TIA, acute, present on admission We will proceed with checking MRI of brain, CTA of head and neck, echocardiogram(patient did have an echocardiogram for his recent visit to but given the fact that he did not have symptoms at that time I think it would be prudent to recheck) Will start ASA 81 mg by mouth daily Did review his results with 50% right internal carotid artery stenosis and the use of ASA and statin therapy. I did order statin therapy however he declines the use of it this time in spite of my explanation of why it is recommended. We are still waiting for the completion of echocardiogram. # History of paroxysmal atrial fibrillation, chronic, present on admission Will place on telemetry May need Holter monitor as an outpatient. # History of seizure disorder, chronic, has been quiescent, Patient currently is on Dilantin and will check level # History of esophageal carcinoma, The patient currently in remission at this time. # DVT prophylaxis Will place on SCDs and hold subcutaneous anti-coagulation prophylactic given patient's previous concern regarding GI bleed # CODE STATUS Patient is full code VTE Mechanical Devices: Intermittant Pneumatic CD Resuscitation Status: CPR: Attempt Resuscitation Time spent 30 minutes Rosario Reynolds MD May 08, 2016 16:40
--- NOTE | 2016-05-08 16:42 | NUR ---
Case Management: MICHELLE explained to patient at 1550, signed original in chart, copy given to patient. Renetta Cao RN
--- NOTE | 2016-05-08 17:50 | NUR ---
Activity Patient has been up and walking the halls multiple times today. Gait is steady. Patient reports no pain, nausea, SOB or chest pain. Patient had echo this afternoon and results are pending. Doctor came to see patient and said that she will get the results later and see him tomorrow to determine discharge status. Patient has been calling appropriately when needed. Patient is on remote tele and has been SR 60's.
--- NOTE | 2016-05-08 17:55 | NUR ---
spiritual care: pt request brief visit. pt shared medical updates, including his concern and caregiving for his with dementia. Pt in good spirits and relieved at "rule outs" with concern about stroke symptoms. 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
[2016-05-09 04:52] VITALS: PULSE 66
[2016-05-09 04:59] VITALS: BP 125/78; PULSE 67; RESP 18; O2SAT 98
--- NOTE | 2016-05-09 06:05 | NUR ---
Activity Pt aware that he may DC if echo results are good. He is AOx4, independent in room, and cooperative with cares. No reports of pain, SOB, dizziness, or cardiac distress. Care continues
--- NOTE | 2016-05-09 07:32 | PCM.DIMED ---
Discharge Instructions Date of Service May 09, 2016 Dates of Hospitalization May 07, 2016 at 17:16 Discharge Diagnosis Discharge Diagnosis Possible TIA,50 % right internal carotid stenosis Diet Heart Healthy Activity Other (activities as tolerated) Patient Instructions Follow-up Provider: Denton Dorado MD Follow-up with PCP in: 1 week Rosario Reynolds MD May 09, 2016 07:32
[2016-05-09] MEDS ORDERED: ASPI-973 PO (07:35)
[2016-05-09 07:43] VITALS: PULSE 75
--- NOTE | 2016-05-09 07:44 | PCM.DC.MED ---
Discharge Summary Date of Service May 09, 2016 Dates of Hospitalization Date of Hospital Admission May 07, 2016 at 17:16 Date of Discharge: May 09, 2016 Providers: Admitting Physician: Rosario Reynolds MD Primary Care Physician: Denton Dorado MD Attending Physician: Rosario Reynolds MD Diagnosis at Time of Discharge Diagnosis at Time of Discharge Possible TIA,50 % right internal carotid stenosis Procedures XRay, CTs & MRIs PROCEDURE: CT ANGIO HEAD AND NECK (P) INDICATIONS: Stroke/TIA TECHNIQUE: Pre-contrast 4.5 mm thick sections acquired from the foramen magnum to the vertex. After the administration of intravenous contrast, 1 mm thick sections acquired from the aortic arch through the [place] of [place]. Post-contrast 4.5 mm thick sections then re-acquired from the foramen magnum to the vertex. 3- dimensional zhsfmzb-giccqpvvo-hcaeodqktl (MIP) and/or volume rendering reformats were acquired of the central intracranial vasculature and neck separately. For radiation dose reduction, the following was used: automated exposure control, adjustment of mA and/or kV according to patient size. COMPARISON: [facility], MR, MR STROKE PROTOCOL, 05/07/2016, 17:48. FINDINGS: Image quality: Limited secondary to beam hardening artifact related to metallic dental hardware. BRAIN: CSF spaces: Ventricles are normal in size and shape. Basal cisterns are patent. No extra-axial fluid collections. Brain: No midline shift. No intracranial bleeds or masses. Winter-white matter interface appears intact. Skull and face: Calvarium and facial bones appear intact, without suspicious lesions. Orbits appear normal. Sinuses: Sinuses and mastoids are clear. HEAD CT ANGIOGRAPHY: Anterior circulation: Intracranial internal carotid arteries are normal in size and flow. Scattered atherosclerotic calcifications noted in the cavernous segments of the internal carotid arteries bilaterally which do not cause appreciable stenosis. The flow within the paired anterior cerebral arteries is normal and symmetric. The flow within the middle cerebral arteries is normal and symmetric. The anterior communicating artery is seen. No aneurysms are seen. Posterior circulation: Visualized portions of the vertebral arteries demonstrate normal caliber, and join to form a normal appearing basilar artery. Flow within the posterior cerebral arteries is normal and symmetric. No aneurysms are seen. NECK CT ANGIOGRAPHY: Carotid system: The great vessels demonstrate a conventional anatomy as they arise from the aortic arch. The origins of the common carotid arteries appear patent. The common carotid arteries demonstrate normal caliber and courses. Calcified and soft atherosclerotic plaque noted proximal right internal carotid artery which causes approximately 50% stenosis. The proximal left internal carotid artery is not visualized due to artifact related to metallic dental hardware and contrast material which refluxed into the left internal jugular vein. Posterior circulation: The origins of the vertebral arteries both appear widely patent. The more superior extracranial portions of both vertebral arteries also demonstrate normal courses and calibers. They join to form a normal appearing basilar artery. Soft tissues: Visualized neck soft tissues demonstrate no suspicious abnormalities. Bones: No suspicious bony lesions. Visualized cervical spine appears normally aligned. IMPRESSION: 1. Image quality limited secondary to beam hardening artifact related to metallic dental hardware and reflux of contrast material into the left internal jugular vein. 2. Atherosclerotic calcification noted in the cavernous segments of the intracranial internal carotid arteries bilaterally without measurable stenosis. 3. Approximately 50% atherosclerotic stenosis of the proximal right internal carotid artery. 4. Proximal left internal carotid artery is obscured by artifact related to metallic dental hardware and contrast material in the left internal jugular vein cannot be evaluated. The visualized portions of the left internal carotid artery cervical segments are fully patent. Dictated by: Vaishali Astorga MD, PhD on 05/08/2016 at 10:19 Approved by: Vaishali Astorga MD, PhD on 05/08/2016 at 10:55 PROCEDURE: MRI STROKE PROTOCOL ([id number]) Pre- and post-contrast brain MRI, non-contrast brain MR angiogram, pre- and postcontrast neck MR angiogram INDICATIONS: L facial, arm numbness TECHNIQUE: Brain: Noncontrast axial T1 spin echo, axial T2 fast spin echo, sagittal and axial FLAIR, coronal T2 fast spin echo, axial gradient echo, axial diffusion and ADC through the brain. After the administration of contrast, axial 3D VIBE of the cranial vasculature and brain. Brain MRA: Non-contrast 3-D time of flight MR angiogram, with multiple maximum- intensity-projection (MIP) reformats performed. Neck MRA: Axial and sagittal TruFISP through the neck. Coronal dynamic MR angiogram during administration of contrast in the arterial and venous phases, with 3-dimenstional qymoega-xjbictyuy-fsjgaukjqi (MIP) reformats constructed from subtraction images. COMPARISON: [facility], CT, CT BRAIN WO CON, 05/07/2016, 15:28. FINDINGS: Image quality: Excellent. BRAIN: CSF spaces: Ventricles are normal in size and shape. Mild, diffuse prominence of CSF space. Basal cisterns are patent. No extra-axial fluid collections. Brain: No intracranial bleeds or mass effects. Winter-white matter interface is normal. Diffusion weighted images show no acute ischemic insults. A few, very small, punctate foci of increased T2 signal noted in the subcortical white matter tracts. Brainstem appears normal. Normal intravascular flow voids are present. No abnormal intracranial enhancement. Skull and face: Calvarial marrow signal is normal. Orbits appear normal. Sinuses: Sinuses and mastoids are clear. BRAIN MR ANGIOGRAM: Anterior circulation: Intracranial internal carotid arteries are normal in size and enhancement. The flow within the paired anterior cerebral arteries is normal and symmetric. The flow within the middle cerebral arteries is normal and symmetric. The anterior communicating artery is seen. No stenoses, occlusions, or aneurysms. Posterior circulation: The visualized portions of the vertebral arteries demonstrate normal caliber, and join to form a normal appearing basilar artery. The flow within the posterior cerebral arteries is normal and symmetric. No stenoses, occlusions, or aneurysms. NECK MR ANGIOGRAM: Carotids: Great vessels demonstrate a conventional anatomy as they arise from the aortic arch. The origins of the common carotid arteries appear patent. The calibers and courses of both common carotid arteries are normal. The bifurcation regions appear normal bilaterally. Atherosclerotic irregularity is noted in the proximal right internal carotid artery which causes moderate, approximately 50% stenosis of the vessel. Minimal atherosclerotic irregularity is noted in the proximal left internal carotid artery which does not cause measurable stenosis. Posterior circulation: The origins of the vertebral arteries appear patent. More superior portions of both vertebral arteries demonstrate normal course and caliber, and join to form a normal appearing basilar artery. Miscellaneous: Subclavian arteries appear patent. Pre-contrast images through the neck show no soft tissue abnormalities. IMPRESSION: BRAIN MRI: 1. No acute intracranial disease process. 2. No areas of acute or chronic infarction. 3. Mild, diffuse volume loss. 4. Minimal subcortical white matter chronic microvascular ischemic changes. BRAIN MR ANGIOGRAM: Negative examination. NECK MR ANGIOGRAM: 1. Approximately 50% stenosis of the proximal right internal carotid artery. 2. Minimal atherosclerotic disease involving the proximal left internal carotid artery without measurable stenosis. 3. Vertebral arteries are fully patent. The estimate of stenosis included in the report of the imaging study was calculated using the NASCET method Dictated by: Vaishali Astorga MD, PhD on 05/07/2016 at 18:37 Approved by: Vaishali Astorga MD, PhD on 05/07/2016 at 18:45 ECG 12 Lead Sinus at a rate of 59 no acute abnormalities noted Cardiac Echo Impression Reveals left ventricular ejection fraction is normal. The ejection fraction estimated at 6065%. There is grade 1 diastolic dysfunction present. Borderline right ventricular enlargement. The right ventricular systolic function is normal. Left atrium is small. History of esophageal resection for cancer noted. To be impingement externally of the left atrial chamber. Ascending aorta is mildly enlarged. There is no significant valvular heart disease. There is no obvious cardiac source of embolus noted on the transthoracic echocardiogram Brief History This is an 81-year-old male who has a history of T3 N1 distal esophageal adenocarcinoma, history of paroxysmal atrial fibrillation and hypertension who presented to the emergency room by EMS with complaints of left-sided facial numbness which started about 11:30 AM and lasted about an hour and a half. He also developed some left lower leg numbness about mid calf down which has improved but has not completely gone away. He noted no other neurological changes. He had no motor weakness. Had no change in speech. He denied any headaches or lightheadedness. He denies any chest pain or palpitations. He does not take aspirin as he was told or had a problem with GI bleeding numerous years ago when he had esophageal carcinoma diagnosed. She according to patient is cancer free at this time. He did have an esophagectomy done for this at [facility] approximately 5 years ago. Patient's evaluation in the emergency room includes a negative CT of head without contrast. EKG is sinus at a rate of 59 with out any acute findings. Hospital Course # Possible TIA, acute, present on admission We will proceed with checking MRI of brain, CTA of head and neck, echocardiogram(patient did have an echocardiogram for his recent visit to but given the fact that he did not have symptoms at that time I think it would be prudent to recheck) Will start ASA 81 mg by mouth daily. Patient is reticent to start any aspirin and antiplatelet agents or other anticoagulation given history of GI bleed in the past. Did review his results with 50% right internal carotid artery stenosis and the use of ASA and statin therapy. I did order statin therapy however he declines the use of it this time in spite of my explanation of why it is recommended. We are still waiting for the completion of echocardiogram. This returns and no significant obvious cardiac source of embolus noted. # History of paroxysmal atrial fibrillation, chronic, present on admission No evidence of atrial fibrillation while in the hospital. Will place on telemetry May need Holter monitor as an outpatient. # History of seizure disorder, chronic, has been quiescent, Patient currently is on Dilantin and will check level # History of esophageal carcinoma, The patient currently in remission at this time per patient report. # DVT prophylaxis Will place on SCDs and hold subcutaneous anti-coagulation prophylactic given patient's previous concern regarding GI bleed # CODE STATUS Patient is full code Exam Vital Signs (Last) Date Time Temp Pulse Resp B/P Pulse Ox O2 Delivery O2 Flow Rate FiO2 05/09/16 04:59 36.3 67 18 125/78 98 Room Air Exam Constitutional: Elderly man in no acute distress Head: Normocephalic atraumatic Chest: Clear to auscultation Cor: Regular rate and rhythm S1-S2 without murmur Abdomen: Soft nontender bowel sounds present Extremities: No pedal edema Neuro: Alert and oriented 3, motor strength and sensation is intact bilaterally Test 05/07/16 16:00 05/07/16 21:45 05/07/16 21:54 White Blood Count 4.7th/mm3 (3.8-10.1) Red Blood Count 4.08mil/mm3 (4.40-5.80) Hemoglobin 11.3g/dL (13.8-17.2) Hematocrit 35.7% (41.0-50.0) Mean Corpuscular Volume 87.5fL (81-100) Mean Corpuscular Hemoglobin 27.7pg (27.0-35.0) Mean Corpuscular Hemoglobin Concent 31.7% (32.0-37.0) Red Cell Distribution Width 14.5% (12.3-15.4) Platelet Count 198bil/L (150-400) Neutrophils (%) (Auto) 62.4% (40-74) Lymphocytes (%) (Auto) 27.0% (14-46) Monocytes (%) (Auto) 8.9% (4-12) Eosinophils (%) (Auto) 1.3% (0-5) Basophils (%) (Auto) 0.2% (0-3) Prothrombin Time 9.9sec (8.1-12.5) Prothromb Time International Ratio 0.93ratio Activated Partial Thromboplast Time 26.8sec (22.8-33.0) Sodium Level 141mEq/L (134-144) Potassium Level 4.1mEq/L (3.5-5.2) Chloride Level 104mEq/L (97-108) Carbon Dioxide Level 24mmol/L (18-29) Blood Urea Nitrogen 13mg/dL (8-27) Creatinine 0.98mg/dL (0.76-1.27) Estimat Glomerular Filtration Rate 78mL/min (>59) Glucose Level 104mg/dL (60-99) Hemoglobin A1c 5.8% (4.8-5.6) Calcium Level 8.3mg/dL (8.5-10.1) Magnesium Level 2.2mg/dL (1.6-2.6) Total Bilirubin 0.2mg/dL (0.0-1.2) Aspartate Amino Transf (AST/SGOT) 28U/L (0-50) Alanine Aminotransferase (ALT/SGPT) 23U/L (0-44) Alkaline Phosphatase 117U/L (25-160) Troponin T < 0.010ug/L (0.0-0.011) Total Protein 7.1g/dL (6.4-8.4) Albumin 3.8g/dL (3.4-5.0) Triglycerides Level 60mg/dL (0-149) Cholesterol Level 133mg/dL (100-199) LDL Cholesterol, Calculated 71.000mg/dL (0-99) VLDL Cholesterol 12.000mg/dL HDL Cholesterol 50mg/dL (>39) Cholesterol/HDL Ratio 2.66 (0.0-4.4) Hold [place] Top Tube Received (Received) Urine Color Yellow (YELLOW) Urine Appearance Clear (CLEAR,HAZY) Urine pH 7.0 (5.0-8.0) Urine Specific [place] 1.010 (1.003-1.035) Urine Protein Negativemg/dL (NEG,TRACE) Urine Glucose (UA) Negativemg/dL (NEGATIVE) Urine Ketones Negativemg/dL (NEGATIVE) Urine Occult Blood Negative (NEGATIVE) Urine Nitrite Negative (NEGATIVE) Urine Bilirubin Negative (NEGATIVE) Urine Urobilinogen Normalmg/dL (NORMAL) Urine Leukocyte Esterase Negative (NEGATIVE) Urine RBC 0-2/hpf (0-2) Urine WBC 0-5/hpf (0-5) Urine Epithelial Cells Occasional/hpf (NONE-MOD) Urine Crystals Oxalic acid crystals (NONE Urine Bacteria None/hpf (NONE-FEW) Urine Hyaline Casts None/lpf (NONE) Urine Granular Casts None seen (NONE SEEN) Urine Waxy Casts None seen (NONE SEEN) Urine Red Blood Cell Casts None seen (NONE SEEN) Urine White Blood Cell Casts None seen (NONE SEEN) Urine Mucus None seen (None Seen) Urine Trichomonas None seen (NONE SEEN) Urine Yeast None (NONE SEEN) Urine Culture Reflexed Not indicated Phenytoin (Dilantin) Level 5.0uG/mL (10.0-20.0) Discharge Medications Discharge Medications Aspirin (Aspirin) 81 Mg Tablet 81 MG PO DAILY Prescribed by: ROSARIO REYNOLDS MD Metoprolol Tartrate (Metoprolol Tartrate) 25 Mg Tablet 12.5 MG PO BID (Reported ) Omeprazole (Omeprazole) 20 Mg Tablet.dr 20 MG PO DAILY (Reported) Phenytoin Sodium ER (Dilantin) 100 Mg Capsule 100 MG PO BID (Reported) Phenytoin Sodium ER (Dilantin) 30 Mg Capsule 60 MG PO BID (Reported) Followup Plan Discharge Diet: Heart Healthy Discharge Activity: Other (activities as tolerated) Follow-up Provider: Denton Droado MD Follow-up with PCP in: 1 week Rosario Reynolds MD May 09, 2016 07:44
[2016-05-09] MEDS: Pantoprazole 20 mg ER24 Tablet PO SCH (07:48)
[2016-05-09] MEDS: Phenytoin 100 mg ER Capsule PO SCH (07:48)
[2016-05-09] MEDS: PHENYTOIN 30 MG PO SCH (07:48)
[2016-05-09 07:53] VITALS: BP 127/82; PULSE 65; RESP 16; O2SAT 99
--- NOTE | 2016-05-09 09:00 | NUR ---
DISCHARGE Patient is alert and oriented X 4. BUE/BLE is equal in strength. He denies numbness/tingling. No facial drooping noted. Denies pain. Tolerating liquids PO and his diet well. Denies nausea. No emesis noted. Denies SOB. Patient has been ambulating independently in the hallway. Gait is steady. Tolerating activity well. IV saline lock d/cd. Discharge instructions, care notes (Stroke information) and prescription was given to the patient and he verbalized understanding. Discharged to home with his son-in-law and all his personal belongings. (Copy of D/C is in the chart).
== END 2016-05-09 09:00 | disposition home or self-care (01) ==
LOC: SED 14:21 → EDBD 14:21 → EDUNIT# 14:21 → OSC 17:16
PROVIDERS: ADMIT Specialist; ATTEND Specialist
DX: I65.21 Occlusion and stenosis of right carotid artery (principal); R20.0 Anesthesia of skin; I48.2 Chronic atrial fibrillation; G40.909 Epilepsy, unspecified, not intractable, without status epilepticus; I10 Essential (primary) hypertension; K57.30 Diverticulosis of large intestine without perforation or abscess without bleeding; K21.9 Gastro-esophageal reflux disease without esophagitis; Z85.01 Personal history of malignant neoplasm of esophagus; Z86.73 Personal history of transient ischemic attack (TIA), and cerebral infarction without residual deficits; Z79.82 Long term (current) use of aspirin
CPT/HCPCS: 36415; 70450; 70496; 70498; 70549; 70553; 80053; 80061; 80185; 81000; 83036; 83735; 84484; 85025; 85610; 85730; 93005; 99285; A9585; G0378; Q9967